=== PATIENT | male | born 1990 | race Caucasian/White ===

== ENCOUNTER 2016-08-05 12:12 | Observation (INO) | payer MEDICAID ==
[2016-08-05] MEDS ORDERED: ONDANSETRON 4 MG/2 ML VIAL IVP ONE ×2 (13:09→18:09)
[2016-08-05] MEDS ORDERED: HYDROmorphONE/DILAUDID 1 MG/ML SYR IVP ONE ×2 (13:09→14:29)
[2016-08-05] MEDS ORDERED: NS 1,000 ML IV ONE ×2 (13:09)
[2016-08-05 13:26] LABS: % IMMATURE GRANULYOCYTES 0.4 % (0.0-1.1); ABSOLUTE IMMATURE GRANULOCYTES 0.04 10^3/uL (0.00-0.10); ADD DIFF? NO; ADD MORPH? NO; ADD SCAN? NO; ATYPICAL LYMPHOCYTE FLAG 0 (0-99); FRAGMENT RBC FLAG 0 (0-99); HEMATOCRIT 48.7 % (40.0-51.0); HEMOGLOBIN 17.5 g/dL (13.7-17.5); LEFT SHIFT FLG 0 (0-99); LIPEMIA HEMOLYSIS FLAG 90 (0-99); MEAN CELL HEMOGLOBIN 32.2 pg (27.9-34.1); MEAN CELL HEMOGLOBIN CONCENTR. 35.9 g/dL (32.4-36.7); MEAN CELL VOLUME 89.5 fL (81.5-99.8); MEAN PLATELET VOLUME 9.2 fL (8.7-11.7); PLATELET CLUMPS FLAG 0 (0-99); PLATELET COUNT 329 10^3/uL (150-400); RED BLOOD CELL COUNT 5.44 10^6/uL (4.40-6.38); RED CELL DISTRIBUTION WIDTH 12.5 % (11.5-15.2)
[2016-08-05 14:01] LABS: ALANINE AMINOTRANSFERASE 67 IU/L (21-72); ALKALINE PHOSPHATASE 73 IU/L (38-126); ANION GAP 16 mEq/L (8-16); ASPARTATE AMINOTRANSFERASE 52 IU/L (17-59); BILIRUBIN-CONJUGATED 0.6 mg/dL (0.0-0.5); BILIRUBIN-UNCONJUGATED 2.4 mg/dL (0.0-1.1); CALCIUM 10.4 mg/dL (8.5-10.4); CARBON DIOXIDE 22 mEq/l (22-31); CHLORIDE 104 mEq/L (97-110); CREATININE 0.7 mg/dL (0.7-1.3); GLOMERULAR FILTRATION RATE > 60; GLUCOSE 122 mg/dL (70-100); SODIUM 142 mEq/L (134-144); TOTAL PROTEIN 8.3 g/dL (6.3-8.2)
[2016-08-05] MEDS ORDERED: HALOPERIDOL LACT 5 MG/ML INJ IVP ONE (14:30)
[2016-08-05] MEDS ORDERED: HALOPERIDOL LACT 5 MG/ML INJ ONE (14:31)
--- NOTE | 2016-08-05 16:24 | EDPHY ---
H & P Stated Complaint: N&V, Hx Gastroparesis flare up, constipation/diarrhea. - Personal History Current Tetanus/Diphtheria Vaccine: Unsure Current Tetanus Diphtheria and Acellular Pertussis (TDAP): Unsure - Medical/Surgical History Hx Asthma: No Hx Chronic Respiratory Disease: No Hx Diabetes: No Hx Cardiac Disease: No Hx Renal Disease: No Hx Cirrhosis: No Hx Alcoholism: No Hx HIV/AIDS: No Hx Splenectomy or Spleen Trauma: No Other PMH: gastroparesis, choleycystectomy, depression, mariojuana user. - Social History Smoking Status: Heavy smoker Time Seen by Provider: 08/05/16 13:02 HPI/ROS: Chief complaint: Abdominal pain with nausea and vomiting History of present illness: This is a 25-year-old male who reports a history of idiopathic gastroparesis who presents to the emergency department with abdominal pain with associated nausea and vomiting. Patient reports the onset of symptoms earlier today. He felt like he is having a flare of his idiopathic gastroparesis, he did give himself some suppository Phenergan which he uses to control symptoms but this did not help. He has had profuse vomiting described as nonbloody. He denies other associated signs or symptoms including no fevers or chills, no diarrhea, no urinary symptoms. 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 Review of systems: A 10 point review of systems was obtained and other than described above was negative (Rodrigue Hurley) - Physical Exam Exam: General Appearance: Alert, actively vomiting on my evaluation. Eyes: Pupils equal and round no pallor or injection. ENT, Mouth: Mucous membranes moist. Respiratory: There are no retractions, lungs are clear to auscultation. Cardiovascular: Regular rate and rhythm. Gastrointestinal: Bowel sounds are normal. Abdomen is soft, nondistended. Diffusely tender to palpation. No peritoneal signs. Neurological: Alert and oriented. Strength and sensation intact and symmetrical. Skin: Warm and dry, no rashes. Musculoskeletal: Neck is supple nontender. Extremities are symmetrical, full range of motion. Psychiatric: Patient is oriented X 3, there is no agitation. (Rodrigue Hurley) Constitutional: Initial Vital Signs Temperature (C) 36.6 C 08/05/16 12:23 Heart Rate 66 08/05/16 12:23 Respiratory Rate 16 08/05/16 12:23 Blood Pressure 148/94 H 08/05/16 12:23 O2 Sat (%) 100 08/05/16 12:23 O2 Delivery Mode Room Air Allergies/Adverse Reactions: No Known Allergies Allergy (Unverified 08/05/16 12:26) Home Medications: Medication Instructions Recorded Albuterol [Proventil Inhaler HFA 1 - 2 puffs IH DAILY PRN 08/05/16 (*)] Omeprazole [Prilosec 20 mg] 20 mg PO DAILY 08/05/16 Promethazine HCl [Phenergan] 25 mg RC Q6HRS PRN 08/05/16 Medical Decision Making ED Course/Re-evaluation: Patient discussed with my secondary supervising physician Dr. Bela Agee. Patient presents to the emergency department reporting history of idiopathic gastroparesis with associated abdominal pain, nausea and vomiting. Patient is symptomatically treated with poor control of his symptoms. He is therefore admitted to the [facility] for further evaluation and care, under the care of Dr. Oz Aparicio. The plan has been discussed with the patient who voiced understanding and agreement with it. (Rodrigue Hurley) Differential Diagnosis: Included but not limited to pass the gastroparesis flare, cyclic vomiting syndrome, marijuana induced vomiting, biliary tract disease, pancreatitis, colitis (Rdorigue Hurley) Other Provider: The patient was evaluated and managed by the Physician Fitter Welder/ Nurse Practitioner. I discussed the patient's presentation and course with the midlevel provider with them and agree with the evaluation. My co-signature indicates that I have reviewed this chart and I agree with the findings and plan of care as documented. I am the secondary supervising physician. (Bela Agee) - Data Points Laboratory Results: Laboratory Results 08/05/16 13:12 08/05/16 13:12 08/05/16 08/05/16 13:12 13:12 WBC 9.93 10^3/uL H 10^3/uL (3.80-9.50) RBC 5.44 10^6/uL 10^6/uL (4.40-6.38) Hgb 17.5 g/dL g/dL (13.7-17.5) Hct 48.7 % % (40.0-51.0) MCV 89.5 fL fL (81.5-99.8) MCH 32.2 pg pg (27.9-34.1) MCHC 35.9 g/dL g/dL (32.4-36.7) RDW 12.5 % % (11.5-15.2) Plt Count 329 10^3/uL 10^3/uL (150-400) MPV 9.2 fL fL (8.7-11.7) Neut % (Auto) 80.8 % H % (39.3-74.2) Lymph % (Auto) 13.3 % L % (15.0-45.0) Garza % (Auto) 5.0 % % (4.5-13.0) Eos % (Auto) 0.1 % L % (0.6-7.6) Baso % (Auto) 0.4 % % (0.3-1.7) Nucleat RBC Rel Count 0.0 % % (0.0-0.2) Absolute Neuts (auto) 8.02 10^3/uL H 10^3/uL (1.70-6.50) Absolute Lymphs (auto) 1.32 10^3/uL 10^3/uL (1.00-3.00) Absolute Monos (auto) 0.50 10^3/uL 10^3/uL (0.30-0.80) Absolute Eos (auto) 0.01 10^3/uL L 10^3/uL (0.03-0.40) Absolute Basos (auto) 0.04 10^3/uL 10^3/uL (0.02-0.10) Absolute Nucleated RBC 0.00 10^3/uL 10^3/uL (0-0.01) Immature Gran % 0.4 % % (0.0-1.1) Immature Gran # 0.04 10^3/uL 10^3/uL (0.00-0.10) Sodium 142 mEq/L mEq/L (134-144) Potassium 3.0 mEq/L L mEq/L (3.5-5.2) Chloride 104 mEq/L mEq/L (97-110) Carbon Dioxide 22 mEq/l mEq/l (22-31) Anion Gap 16 mEq/L mEq/L (8-16) BUN 13 mg/dL mg/dL (7-23) Creatinine 0.7 mg/dL mg/dL (0.7-1.3) Estimated GFR > 60 Glucose 122 mg/dL H mg/dL (70-100) Calcium 10.4 mg/dL mg/dL (8.5-10.4) Total Bilirubin 3.0 mg/dL H mg/dL (0.1-1.4) Conjugated Bilirubin 0.6 mg/dL H mg/dL (0.0-0.5) Unconjugated Bilirubin 2.4 mg/dL H mg/dL (0.0-1.1) AST 52 IU/L IU/L (17-59) ALT 67 IU/L IU/L (21-72) Alkaline Phosphatase 73 IU/L IU/L (38-126) Total Protein 8.3 g/dL H g/dL (6.3-8.2) Albumin 5.0 g/dL g/dL (3.5-5.0) Lipase 56.0 IU/L IU/L (23-300) Medications Given: Discontinued Medications Diphenhydramine HCl (Benadryl Injection) 25 mg IVP EDNOW ONE Stop: 08/05/16 14:31 Last Admin: 08/05/16 14:30 Dose: 25 mg Haloperidol Lactate (Haldol Injection) 5 mg IVP EDNOW ONE Stop: 08/05/16 14:31 Last Admin: 08/05/16 14:30 Dose: 5 mg Hydromorphone HCl (Dilaudid) 1 mg IVP EDNOW ONE Stop: 08/05/16 13:10 Last Admin: 08/05/16 13:21 Dose: 1 mg Hydromorphone HCl (Dilaudid) 1 mg IVP EDNOW ONE Stop: 08/05/16 14:30 Last Admin: 08/05/16 14:57 Dose: Not Given Sodium Chloride (Ns) 1,000 mls @ 0 mls/hr IV ONCE ONE PRN Reason: Wide Open Stop: 08/05/16 13:10 Last Admin: 08/05/16 13:20 Dose: 1,000 mls Sodium Chloride (Ns) 1,000 mls @ 0 mls/hr IV ONCE ONE PRN Reason: Wide Open Stop: 08/05/16 13:10 Last Admin: 08/05/16 14:30 Dose: 1,000 mls Ondansetron HCl (Zofran) 8 mg IVP EDNOW ONE Stop: 08/05/16 13:10 Last Admin: 08/05/16 13:21 Dose: 8 mg Ondansetron HCl (Zofran) 4 mg IVP EDNOW ONE Stop: 08/05/16 18:10 Last Admin: 08/05/16 18:15 Dose: 4 mg Departure - Departure Disposition: [facility] Acute Clinical Impression: Abdominal pain Qualifiers: Abdominal location: generalized Qualified Code(s): R10.84 - Generalized abdominal pain Condition: Good
[2016-08-05] MEDS ORDERED: ACETAMINOPHEN 325 MG TAB PO PRN (18:33)
[2016-08-05] MEDS ORDERED: ZOLPIDEM TARTRATE 5 MG TAB PO PRN (18:33)
[2016-08-05] MEDS ORDERED: NS 1,000 ML IV SCH (18:45)
[2016-08-05] MEDS ORDERED: ALBUTEROL 60 PUFFS/8 GM MDI IH PRN (18:59)
--- NOTE | 2016-08-05 19:04 | HOSPPROG ---
Hospitalist Progress Note Assessment/Plan: HISTORY AND PHYSICAL CC: Intractable nausea and vomiting for a week HISTORY: This patient has a history going back to 2006 of repeated episodes of per intractable vomiting and nausea with some component of abdominal pain. These can last anywhere from days to a few weeks. He has been hospitalized numerous times. This is his 1st visit to our healthcare system. He lives in [place] at this time and is visiting in [place] today. Previous evaluations have not shown any particular definite cause for this and he has had his gallbladder removed without help. He carries a diagnosis presumptively of idiopathic gastroparesis. His evaluation has been extensive with reimaging laboratory and consultative evaluations. He started having nausea and vomiting a week ago. Since then he has been having 4-15 nonbloody emesis cc per day. He has been moving his bowels somewhat but with little food intake not much. His last bowel movement was this morning. He has had 2 urgent care visits prior during this episode where he received antiemetics and fluids. Does use Phenergan suppositories at home but these are not working for him right now. He has not eaten much. The patient does not use any nonsteroidal anti-inflammatories or alcohol. He rarely uses recreational marijuana has not used recently. He does not use other illicit drugs. He has had no abdominal surgeries other than gallbladder removal. He denies shortness of breath or chest pain back pain rashes or joint pains or oral ulcers ROS: A comprehensive 10 system review revealed no other significant findings PAST MEDICAL HISTORY: See above Also he has some history of asthma and uses occasional inhaler FAMILY MEDICAL HISTORY: Father has Crohn's disease SOCIAL HISTORY: No use of tobacco alcohol and rare use of recreational pot MEDICATIONS: The patients list has been reconciled by our clinical pharmacist in the EMR. I have reviewed the list and ordered appropriate medicines. PHYSICAL EXAMINATION: Vital Signs: Stable without fever Examination: General: alert, oriented, good mentation, looks fairly uncomfortable from nausea Skin: warm, dry, good color, no rash or jaundice HEENT: normal Neck: no mass or jvd Resps: relaxed Lungs: clear breath sounds Heart: regular, no murmur Abdomen: soft, nondistended, very mild diffuse tenderness without rebound or guarding, +BS, no mass Upper Extremities: normal Lower Extremities: no edema, warm No Bleeding or bruising Neurologic: normal speech/language, normal construction secretary, no focal weakness IV site: looks normal LABORATORY DATA: Mainly remarkable for elevation of white blood cell count and a little bit of hypokalemia at 3.0 ASSESSMENT: -INTRACTABLE VOMITING, SUGGESTIVE OF POSSIBLE CYCLIC VOMITING SYNDROME BUT BEGIN THE PATIENT CARING A DIAGNOSIS OF IDIOPATHIC GASTROPARESIS FROM EVALUATION ELSEWHERE -DEHYDRATION -HYPOKALEMIA FROM ABOVE PLANS: -initially in observation -aggressive hydration -Replacement of potassium -aggressive antiemetic regimen on a scheduled basis with additional p.r.n. I have reviewed the patient's case in detail with Rodrigue WASHINGTON of the ER Objective: Vital Signs Temp Pulse Resp BP Pulse Ox 36.6 C 60 16 127/74 H 97 08/05/16 18:29 08/05/16 18:29 08/05/16 18:29 08/05/16 18:29 08/05/16 18:29 ICD10 Worksheet Patient Problems: Problems Problem Status Onset Abdominal pain Acute
[2016-08-05] MEDS: HALOPERIDOL LACT 5 MG/ML INJ IVP SCH (19:43)
[2016-08-05] MEDS: LORazepam 2 MG/ML INJ IVP PRN (21:55)
[2016-08-05] MEDS: ONDANSETRON 4 MG/2 ML VIAL IVP SCH (21:55)
[2016-08-05 22:21] LABS: COLOR AMBER; LEUKOCYTE ESTERASE,URINE NEGATIVE (NEGATIVE); NITRITE,URINE NEGATIVE (NEGATIVE)
[2016-08-05 22:26] LABS: AMORPHOUS PRESENT /hpf (NONE-1+); MUCUS TRACE /lpf (NONE-1+)
[2016-08-05 22:37] LABS: RBC,URINE NONE SEEN /hpf (0-3); WBC,URINE 0-1 /hpf (0-3)
[2016-08-06] MEDS: HALOPERIDOL LACT 5 MG/ML INJ IVP SCH ×4 (01:19→12:45)
[2016-08-06] MEDS: ONDANSETRON 4 MG/2 ML VIAL IVP SCH ×4 (02:06→10:59)
[2016-08-06 05:19] LABS: ANION GAP 9 mEq/L (8-16); CALCIUM 8.5 mg/dL (8.5-10.4); CARBON DIOXIDE 23 mEq/l (22-31); CHLORIDE 108 mEq/L (97-110); CREATININE 0.7 mg/dL (0.7-1.3); GLOMERULAR FILTRATION RATE > 60; GLUCOSE 85 mg/dL (70-100); POTASSIUM 3.5 mEq/L (3.5-5.2); SODIUM 140 mEq/L (134-144)
[2016-08-06 07:34] VITALS: BP 142/69; PULSE 70; RESP 18; TEMP 98.3; O2SAT 93
[2016-08-06] MEDS: LORazepam 2 MG/ML INJ IVP PRN (09:29)
[2016-08-06 12:33] LABS: PHENCYCLIDINE URINE BCH < 6 ng/ml (NEGATIVE); PHENCYCLIDINE URINE BCH NEGATIVE (NEGATIVE)
[2016-08-06 12:43] LABS: TETRAHYDROCANNABINOL URINE > 800 ng/mL (NEGATIVE)
--- NOTE | 2016-08-06 17:24 | GDS ---
[f rep st] DISCHARGE SUMMARY DISCHARGE DIAGNOSES: Include: 1. Suspected cannabis hyperemesis. 2. Chronic history of idiopathic gastroparesis. 3. Anxiety. HISTORY OF PRESENT ILLNESS: This is a 25-year-old male with a longstanding history of chronic nause a and vomiting that has led to cholecystectomy, 4 EGDs, multiple colonoscopies, and a diagnosis of i diopathic gastroparesis, who presents with recurrent nausea and vomiting. For details of the joanna sykes's initial presentation, please see the history and physical dated 08/05/2016. CONSULTATIVE SERVICES: None. PROCEDURES: None. HOSPITAL COURSE: By issue: 1. Acute nausea and vomiting. A detailed history was taken, and previous studies reviewed with the patient. He carries a diagnosis of idiopathic gastroparesis. Did review his social history, and h e admitted to occasionally using marijuana. We did a urine toxicology screen on him, and his measur ed marijuana was greater than 800, higher than the measurable level in our laboratory. Discussed th e likelihood that the patient is experiencing cannabis hyperemesis, and how important complete cessa tion of cannabis will be for him for any ongoing nausea and vomiting. The patient was tolerating no rmal intake at the time of disposition. 2. Chronic history of idiopathic gastroparesis. This is a difficult diagnosis for me to confirm or deny. Again, we recommend the patient avoid cannabis going forward, so the underlying pathophysiol ogy can be reviewed and controlled by Gastroenterology. I did review the case with the on-call eloisa roenterologist, who recommended outpatient followup. We provided contact information, and the vanessa nt will be promptly scheduled in GI of the [facility] for ongoing followup. DISCHARGE MEDICATIONS: Please reference medication reconciliation printed on 08/06/2016. FOLLOWUP APPOINTMENTS: Include with GI of the [facility]. PENDING STUDIES: At the time of this dictation are none. /[id number]/MODL
== END 2016-08-06 13:45 | disposition home or self-care (01) ==
LOC: EDBD 12:12 → F1N 18:22
PROVIDERS: ADMIT Internal Medicine; ATTEND Hospitalist
DX: R11.2 Nausea with vomiting, unspecified (principal); F41.9 Anxiety disorder, unspecified; K31.84 Gastroparesis; F12.90 Cannabis use, unspecified, uncomplicated
CPT/HCPCS: G0378 ×2; 80307; 96374; G0480; J1170; J1200; J2060; J2405

== ENCOUNTER 2016-08-10 10:46 | Observation (INO) | payer MEDICAID ==
[2016-08-10] MEDS ORDERED: ONDANSETRON 4 MG/2 ML VIAL ONE (10:51)
[2016-08-10] MEDS ORDERED: NS 1,000 ML IV ONE ×2 (10:59→11:32)
[2016-08-10] MEDS ORDERED: LORazepam 2 MG/ML INJ IVP ONE ×3 (10:59→16:12)
[2016-08-10] MEDS ORDERED: ONDANSETRON 4 MG/2 ML VIAL IVP ONE ×2 (11:00→11:32)
--- NOTE | 2016-08-10 11:03 | EDPHY ---
H & P Smoking Status: Current every day smoker Time Seen by Provider: 08/10/16 10:52 HPI/ROS: CHIEF COMPLAINT: Vomiting HISTORY OF PRESENT ILLNESS: 25-year-old male presents to the emergency department by private vehicle with his girlfriend complaining of multiple episodes of vomiting that began around 2:00 a.m.. The patient has a history of apparent idiopathic gastroparesis diagnosed in [place]. He has had a large workup including multiple colonoscopies and endoscopies. He is scheduled to see [facility] on Friday, in 2 days. He was admitted to the hospital on August 05, 2016, 5 days ago. The patient presents with recurring nausea and vomiting. He describes diffuse abdominal pain. He has vomited numerous times, he states "too many to count." No fevers or chills. No back pain. No urinary symptoms. No blood in his stool or emesis. REVIEW OF SYSTEMS: Constitutional: No fever, no chills. Eyes: No double or blurry vision. ENT: No sore throat. Respiratory: No cough, no shortness of breath. Cardiac: No chest pain. Gastrointestinal: Vomiting as above. Diffuse abdominal pain. No diarrhea. Genitourinary: No dysuria. Musculoskeletal: No neck or back pain. Skin: No rashes. Neurological: No headache. (Libby Godinezrina M) Past Medical/Surgical History: Idiopathic gastroparesis, possible cyclical vomiting syndrome, marijuana use ( Gretchen,Agatha M) Social History: Single, from [place] (Agatha Godinez M) Physical Exam: General Appearance: Alert. Heart rate 118, extremely anxious, respiratory rate 22, blood pressure 181/93 Eyes: Pupils equal and round. Extraocular motions are all intact. ENT: Mouth: Mucous membranes dry. Respiratory: No wheezing, rhonchi, or rales, lungs are clear to auscultation. Cardiovascular: Regular rate and rhythm. Gastrointestinal: Abdomen is soft. Diffusely tender to palpate. No masses, rebound or guarding noted. No CVA tenderness bilaterally. Neurological: Alert and oriented x 3, cranial nerves II through XII grossly intact Skin: Warm and dry, no rashes. Musculoskeletal: Nontender to palpate along the cervical, thoracic or lumbar spine. Neck is supple. Extremities: Full range of motion and no peripheral edema. Psychiatric: Patient is oriented X 3, there is no agitation. (Agatha Godinez) Constitutional: Initial Vital Signs Temperature (C) 36.4 C 08/10/16 10:46 Heart Rate 118 H 08/10/16 10:46 Respiratory Rate 22 H 08/10/16 10:46 Blood Pressure 181/93 H 08/10/16 10:46 O2 Sat (%) 99 08/10/16 10:46 O2 Delivery Mode Room Air Allergies/Adverse Reactions: haldol Allergy (Uncoded 08/10/16 11:27) reglan Allergy (Uncoded 08/10/16 11:27) Home Medications: Medication Instructions Recorded Albuterol [Proventil Inhaler HFA 1 - 2 puffs IH DAILY PRN 08/05/16 (*)] Omeprazole [Prilosec 20 mg] 20 mg PO DAILY 08/05/16 Ondansetron HCl [Zofran] 8 mg PO Q8 PRN #30 tablet 08/06/16 Promethazine HCl [Phenergan] 25 mg RC Q6 PRN 08/10/16 Medical Decision Making ED Course/Re-evaluation: 25-year-old male presents to the emergency department with multiple episodes of nausea vomiting. He was recently admitted to the hospital with similar symptoms. I do not think this patient has acute abdomen. He came in extremely anxious and hyperventilating. He was given IV Ativan and Zofran and has been sleeping. Patient states that he cannot take Haldol, it makes him extremely anxious. The patient was re-evaluated multiple times. He was resting comfortably and in fact sleeping very soundly. I went to wake him up and he states that he was feeling a bit better. I was talking to him about obtaining a ride home. He states that he does not have a ride home for at least 5 or 6 hours, until his were all friend got off work at 9:00 p.m.. The nurse explained that the girlfriend offered to come back and take him home, however when the patient started drinking water he immediately felt nauseous and began vomiting again. Patient will be admitted to Dr. Morena Street to the [facility]. (Agatha Godinez) Differential Diagnosis: Including but not limited to gastritis, gastroenteritis, bowel obstruction, gastroparesis, hyperemesis cannabinoid syndrome, anxiety (Agatha Godinez) Other Provider: The patient was evaluated and managed by the physician physiotherapist's assistant. I have reviewed this chart and I agree with the findings and plan of care as documented , as indicated by my signature. I am the secondary supervising physician. ( Millicent Vergara) - Data Points Laboratory Results: Laboratory Results 08/10/16 10:55 08/10/16 10:55 Medications Given: Discontinued Medications Sodium Chloride (Ns) 1,000 mls @ 0 mls/hr IV ONCE ONE PRN Reason: Wide Open Stop: 08/10/16 11:00 Last Admin: 08/10/16 11:00 Dose: 1,000 mls Sodium Chloride (Ns) 1,000 mls @ 0 mls/hr IV ONCE ONE PRN Reason: Wide Open Stop: 08/10/16 11:33 Last Admin: 08/10/16 11:44 Dose: 1,000 mls Famotidine 20 mg/ Sodium (Chloride) 102 mls @ 408 mls/hr IV EDNOW ONE Stop: 08/10/16 14:04 Last Admin: 08/10/16 13:59 Dose: 102 mls Pantoprazole Sodium 40 mg/ (Sodium Chloride) 100 mls @ 200 mls/hr IV EDNOW ONE Stop: 08/10/16 14:19 Last Admin: 08/10/16 14:11 Dose: 100 mls Lorazepam (Ativan Injection) 1 mg IVP EDNOW ONE Stop: 08/10/16 11:00 Last Admin: 08/10/16 11:07 Dose: 1 mg Lorazepam (Ativan Injection) 1 mg IVP EDNOW ONE Stop: 08/10/16 11:33 Last Admin: 08/10/16 11:43 Dose: 1 mg Lorazepam (Ativan Injection) 1 mg IVP EDNOW ONE Stop: 08/10/16 16:13 Last Admin: 08/10/16 16:20 Dose: 1 mg Metoclopramide HCl (Reglan Injection) 10 mg IVP EDNOW ONE Stop: 08/10/16 11:21 Last Admin: 08/10/16 11:27 Dose: Not Given Ondansetron HCl (Zofran) 4 mg IVP EDNOW ONE Stop: 08/10/16 11:01 Last Admin: 08/10/16 11:00 Dose: 4 mg Ondansetron HCl (Zofran) 4 mg IVP EDNOW ONE Stop: 08/10/16 11:33 Last Admin: 08/10/16 11:44 Dose: 4 mg Ondansetron HCl (Zofran Odt) 4 mg PO EDNOW ONE Stop: 08/10/16 13:41 Last Admin: 08/10/16 13:51 Dose: Not Given Departure - Departure Disposition: [facility] Acute Clinical Impression: Dehydration Vomiting Qualifiers: Vomiting type: unspecified Vomiting Intractability: non-intractable Nausea presence: with nausea Qualified Code(s): R11.2 - Nausea with vomiting, unspecified Condition: Good
[2016-08-10] MEDS ORDERED: METOCLOPRAMIDE 10 MG/2 ML VIAL IVP ONE (11:20)
[2016-08-10 12:59] LABS: % IMMATURE GRANULYOCYTES 0.7 % (0.0-1.1); ABSOLUTE IMMATURE GRANULOCYTES 0.09 10^3/uL (0.00-0.10); ADD DIFF? NO; ADD MORPH? NO; ADD SCAN? NO; ATYPICAL LYMPHOCYTE FLAG 10 (0-99); FRAGMENT RBC FLAG 0 (0-99); HEMATOCRIT 50.9 % (40.0-51.0); HEMOGLOBIN 17.1 g/dL (13.7-17.5); LEFT SHIFT FLG 0 (0-99); LIPEMIA HEMOLYSIS FLAG 80 (0-99); MEAN CELL HEMOGLOBIN 31.3 pg (27.9-34.1); MEAN CELL HEMOGLOBIN CONCENTR. 33.6 g/dL (32.4-36.7); MEAN CELL VOLUME 93.2 fL (81.5-99.8); MEAN PLATELET VOLUME 9.9 fL (8.7-11.7); PLATELET CLUMPS FLAG 0 (0-99); PLATELET COUNT 407 10^3/uL (150-400); RED BLOOD CELL COUNT 5.46 10^6/uL (4.40-6.38); RED CELL DISTRIBUTION WIDTH 13.1 % (11.5-15.2)
[2016-08-10 13:05] LABS: ANION GAP 16 mEq/L (8-16); CALCIUM 10.1 mg/dL (8.5-10.4); CARBON DIOXIDE 26 mEq/l (22-31); CHLORIDE 103 mEq/L (97-110); CREATININE 0.7 mg/dL (0.7-1.3); GLOMERULAR FILTRATION RATE > 60; GLUCOSE 114 mg/dL (70-100); SODIUM 145 mEq/L (134-144)
[2016-08-10] MEDS ORDERED: ONDANSETRON DISINTEGRATING 4 MG TAB PO ONE (13:40)
[2016-08-10] MEDS ORDERED: PANTOPRAZOLE SODIUM 40 MG in NS 100 ML IV ONE (13:50)
[2016-08-10] MEDS ORDERED: FAMOTIDINE 20 MG in NS 100 ML IV ONE (13:50)
[2016-08-10] MEDS ORDERED: NON-FORMULARY NEW DRUG (Ondansetron Hcl [Zofran] 8 MG) PO PRN (16:32)
[2016-08-10] MEDS ORDERED: PROMETHAZINE HCL 25 MG SUPPR PR PRN (16:32)
[2016-08-10] MEDS ORDERED: ONDANSETRON DISINTEGRATING 4 MG TAB PO PRN (16:48)
[2016-08-10] MEDS ORDERED: KETOROLAC 30 MG/1 ML SDV IVP PRN (17:07)
[2016-08-10] MEDS ORDERED: ACETAMINOPHEN 325 MG TAB PO PRN (17:07)
[2016-08-10] MEDS ORDERED: ONDANSETRON 4 MG/2 ML VIAL IVP PRN (17:07)
[2016-08-10] MEDS ORDERED: POLYETHYLENE GLYCOL 3350 17 GM PKT PO PRN (17:21)
[2016-08-10] MEDS ORDERED: MAGNESIUM HYDROXIDE 30 ML UDCUP PO PRN (17:21)
[2016-08-10] MEDS ORDERED: LACTULOSE 20 GM/30 ML UDCUP PO PRN (17:21)
[2016-08-10] MEDS ORDERED: BISACODYL 10 MG SUPP PR PRN (17:21)
--- NOTE | 2016-08-10 18:11 | GHP ---
[f rep st] HISTORY AND PHYSICAL DATE OF ADMISSION: 08/10/2016 CHIEF COMPLAINT: Nausea/vomiting. HISTORY: Wilmer is a 25-year-old male with a history of intractable nausea and vomiting, as far back as 2006. Previous workup was all in [place] but reportedly included EGD x4, colonoscopy, and cholecys tectomy with an eventual diagnosis of idiopathic gastroparesis. He was recently admitted to [facility] with hyperemesis and was just discharged 3 days ago. He initially denied signif icant marijuana use; however, his marijuana level here on his last admission was greater than 800, w hich is higher than the detectable levels of our lab, and so it was felt to be likely contributing. He was counseled in this regard and states this since he left the hospital he has dramatically cut down his marijuana use. His last marijuana use was 1-1/2 days ago, and threw the rest of it away. He also denies that marijuana is contributing to the vomiting, as this vomiting problem has preceded his marijuana use. He re-presented to the emergency room and was observed in the ER for greater th an 4 hours and failed to improve, and so is now being admitted to the observation unit. He is const ipated and had a bowel movement this morning, but it was hard. He complains of abdominal pain, whic h is epigastric pain, without radiation similar to previous abdominal pain episodes. He states he h as had 4-5 CT scans in the past, all of which did not result in any diagnosis; although, he did say he had some biopsies as a result of the CT scans. PAST MEDICAL HISTORY: 1. Idiopathic gastroparesis with intractable nausea and vomiting as far back 2006. 2. Anxiety. 3. Asthma. MEDICATIONS: Please see computer record for full detailed list. ALLERGIES: Haldol and Reglan. SOCIAL HISTORY: He does smoke cigarettes and is cutting back; now at half a pack per day. No alcoh ol use. Marijuana use as above with an intent to quit at this time. He lives with his girlfriend vin [place]. Not currently employed. His last job was at [employer] last January. Typically work s in seafood harvester. REVIEW OF SYSTEMS: Complete review of systems obtained. Review of systems is negative regarding co nstitutional, HEENT, GI, pulmonary, cardiovascular, , hematology, skin, musculoskeletal, endocrine , and psych except for positives and negatives as in HPI. FAMILY HISTORY: Father with Crohn disease. PHYSICAL EXAMINATION: GENERAL: Well-developed, well-nourished male, in no acute distress. VITAL SI GNS: Temperature is 36.4, pulse 118, blood pressure 181/93, satting 98% on room air. EYES: Normal conjunctivae. Pupils react to light. ENT: Normal ears and nose. Hearing intact. Normal lips an d teeth. Oropharynx moist. NECK: Trachea midline. No thyromegaly. CHEST: Normal respiratory ef fort. LUNGS: Clear to auscultation bilaterally. CARDIOVASCULAR: Regular rate and rhythm. No mur mur. No lower extremity edema. ABDOMEN: Soft. Positive epigastric tenderness to palpation withou t rebound or guarding. No hepatosplenomegaly. SKIN: Warm, dry, and intact without rash. MUSCULOS KELETAL: No cyanosis or clubbing. Strength 5/5 in upper and lower extremities. NEURO: Cranial ne rves intact. Normal sensation to light touch. PSYCH: Alert and oriented x3. Normal mood and affe ct. Normal judgment. Normal memory. LABORATORY DATA: White count 13.56, hematocrit 50.9, platelets 407. Sodium 145, potassium 4.0, chl oride 103, bicarb 26, BUN 9, creatinine 0.7, glucose 114. This case was discussed with FELIX Nevarez, in the emergency room regarding the emergency room course. She held him in the ER over 4 rohini rs in an attempt to discharge from the ER, but it failed. ASSESSMENT/PLAN: 1. Recurrent intractable nausea and vomiting, with a history of years of hyperemesis. Possible con tribution of high marijuana use; although, the patient adamant that these symptoms preceded the onse t of his marijuana habit. Interestingly, he does meet sepsis criteria on presentation with leukocyt osis and tachycardia; although, I do not believe he is infected. His abdominal exam is quite tender , however, and with his leukocytosis could consider further imaging. No imaging was done during his last hospitalization but, by report, has been imaged extensively in the past. I will start with a 3 way of the abdomen, and if this persists could consider a CAT scan. He will otherwise be treated supportively. 2. Constipation. This may be contributing to his nausea and vomiting. Will place him on a bowel p rotocol. 3. Asthma. This is currently stable. Hold off on any inhalers at this time. CODE STATUS: Full. ADMISSION STATUS: 1. Will admit to observation. Anticipate short stay. If he improves. 2. DVT prophylaxis. He is low risk. /[id number]/MODL
[2016-08-10] MEDS: NS 1,000 ML IV SCH (19:00)
[2016-08-10] MEDS: SENNOSIDES/DOCUSATE SODIUM TAB PO SCH (21:10)
[2016-08-11] MEDS: NS 1,000 ML IV SCH (03:33)
[2016-08-11 05:45] LABS: % IMMATURE GRANULYOCYTES 0.3 % (0.0-1.1); ABSOLUTE IMMATURE GRANULOCYTES 0.03 10^3/uL (0.00-0.10); ADD DIFF? NO; ADD MORPH? NO; ADD SCAN? NO; ATYPICAL LYMPHOCYTE FLAG 0 (0-99); FRAGMENT RBC FLAG 0 (0-99); HEMATOCRIT 42.2 % (40.0-51.0); HEMOGLOBIN 14.4 g/dL (13.7-17.5); LEFT SHIFT FLG 0 (0-99); LIPEMIA HEMOLYSIS FLAG 90 (0-99); MEAN CELL HEMOGLOBIN 31.9 pg (27.9-34.1); MEAN CELL HEMOGLOBIN CONCENTR. 34.1 g/dL (32.4-36.7); MEAN CELL VOLUME 93.4 fL (81.5-99.8); MEAN PLATELET VOLUME 9.2 fL (8.7-11.7); PLATELET CLUMPS FLAG 0 (0-99); PLATELET COUNT 289 10^3/uL (150-400); RED BLOOD CELL COUNT 4.52 10^6/uL (4.40-6.38); RED CELL DISTRIBUTION WIDTH 13.2 % (11.5-15.2)
[2016-08-11 06:08] LABS: ALANINE AMINOTRANSFERASE 55 IU/L (21-72); ALBUMIN 3.5 g/dL (3.5-5.0); ALKALINE PHOSPHATASE 48 IU/L (38-126); ANION GAP 8 mEq/L (8-16); ASPARTATE AMINOTRANSFERASE 23 IU/L (17-59); BILIRUBIN,TOTAL 1.2 mg/dL (0.1-1.4); BILIRUBIN-CONJUGATED 0.4 mg/dL (0.0-0.5); BILIRUBIN-UNCONJUGATED 0.8 mg/dL (0.0-1.1); CALCIUM 8.6 mg/dL (8.5-10.4); CARBON DIOXIDE 24 mEq/l (22-31); CHLORIDE 108 mEq/L (97-110); CREATININE 0.7 mg/dL (0.7-1.3); GLOMERULAR FILTRATION RATE > 60; GLUCOSE 85 mg/dL (70-100); SODIUM 140 mEq/L (134-144); TOTAL PROTEIN 5.9 g/dL (6.3-8.2)
[2016-08-11] MEDS ORDERED: PANTOPRAZOLE SODIUM 40 MG TAB PO SCH (09:00)
[2016-08-11] MEDS ORDERED: NON-FORMULARY NEW DRUG (Omeprazole [Prilosec 20 Mg] 20 MG) PO SCH (09:00)
[2016-08-11] MEDS: SENNOSIDES/DOCUSATE SODIUM TAB PO SCH (09:25)
[2016-08-11 10:30] VITALS: BP 134/77; PULSE 69; RESP 20; TEMP 98.2; O2SAT 93
--- NOTE | 2016-08-11 15:18 | PDDCSUM ---
Discharge Summary Discharge Summary: DISCHARGE DIAGNOSES: -Intractable vomiting, -Acute exacerbation of recurrent syndrome likely cyclic vomiting syndrome but patient carries diagnosis of gastroparesis - marijuana abuse HOSPITAL COURSE SUMMARY: this patient returns to the hospital shortly after a previous episode of similar symptoms. Has a long history of recurrent episodes of intractable vomiting some of which often going on for weeks on end. At this point he was admitted here 6 days ago and responded very well to antiemetics and hydration. He did well for the 1st 3 days at home with no nausea or vomiting complete comes back at this time with intractable vomiting again. Once again he has responded very well to hydration and antiemetics. The patient does have some history of marijuana abuse but says that his vomiting episodes predated his use of marijuana. He says that he had not use marijuana between his previous hospital stay in this hospital stay. He has had extensive evaluation with imaging endoscopies numerous blood tests and consultations in the past and there is no indication for any further evaluation diagnostically at this time. I did prescribed for him orally disintegrating Zofran that he can use at home without having to try to swallow it. He does also have Phenergan suppositories at home. Does not really exhibit much in the way of drug-seeking behaviors here in terms of pain medicine. He does not use narcotics at home MEDICATION CHANGES: Addition of orally disintegrating Zofran FOLLOW-UP PLAN: With primary care 1-2 weeks or sooner as needed
== END 2016-08-11 13:27 | disposition home or self-care (01) ==
LOC: F1N 16:32
PROVIDERS: ADMIT Internal Medicine; ATTEND Internal Medicine
DX: R11.2 Nausea with vomiting, unspecified (principal); K31.84 Gastroparesis; F12.90 Cannabis use, unspecified, uncomplicated; E86.0 Dehydration; R10.13 Epigastric pain; K59.00 Constipation, unspecified; F41.9 Anxiety disorder, unspecified; J45.909 Unspecified asthma, uncomplicated; F17.210 Nicotine dependence, cigarettes, uncomplicated
CPT/HCPCS: 74022; G0378; 96365; J2060; J2405; J2765

== ENCOUNTER 2016-10-15 13:07 | Inpatient (IN) | payer MEDICAID ==
--- NOTE | 2016-10-15 13:09 | EDPHY ---
H & P Time Seen by Provider: 10/15/16 13:08 HPI/ROS: CHIEF COMPLAINT: Acute abdominal pain, nausea, vomiting HISTORY OF PRESENT ILLNESS: Acute exacerbation of chronic abdominal pain and vomiting. The patient presents to the ED with a acute exacerbation of a condition he describes as idiopathic gastroparesis. The patient is currently under the care of a tortilla maker. He has been using Zofran at home without improvement. He complains of a moderate to severe epigastric pain with associated retching. The patient also complains of constipation. The patient tells me that the symptoms have not been attributed to moderate marijuana use although he does continue to use marijuana on a regular basis. The patient has had multiple upper and lower endoscopies. The patient is also s/p cholecystectomy. The patient reports acute, severe and typical symptoms of his exacerbations. He denies melena or associated. REVIEW OF SYSTEMS: A comprehensive 10 point review of systems is otherwise negative aside from elements mentioned in the history of present illness. Source: Patient Exam Limitations: No limitations - Medical/Surgical History Hx Asthma: No Hx Chronic Respiratory Disease: No Hx Diabetes: No Hx Cardiac Disease: No Hx Renal Disease: No Hx Cirrhosis: No Hx Alcoholism: No Hx HIV/AIDS: No Hx Splenectomy or Spleen Trauma: No Other PMH: gastroparesis, choleycystectomy, depression, marijuana user, childhood asthma, palpatation, GERD, cyclic vomiting syndrome - Social History Smoking Status: Current some day smoker - Physical Exam Exam: General Appearance: Retching, slightly agitated Eyes: Pupils equal and round no pallor or injection ENT, Mouth: Mucous membranes moist Respiratory: There are no retractions, lungs are clear to auscultation Cardiovascular: Regular rate and rhythm Gastrointestinal: Minimal epigastric tenderness palpation Neurological: A&O, normal motor function, normal sensory exam, normal cranial nerves Skin: Warm and dry, no rashes Musculoskeletal: Neck is supple nontender Extremities: symmetrical, full range of motion Constitutional: Initial Vital Signs Temperature (C) 36.3 C 10/15/16 13:10 Heart Rate 55 L 10/15/16 13:10 Respiratory Rate 10/15/16 13:10 Blood Pressure 151/87 H 10/15/16 13:10 O2 Sat (%) 100 10/15/16 13:10 O2 Delivery Mode Room Air Allergies/Adverse Reactions: acetaminophen [From Vicodin] Allergy (Verified 10/15/16 13:08) hydrocodone [From Vicodin] Allergy (Verified 10/15/16 13:08) haldol Allergy (Uncoded 10/15/16 13:08) reglan Allergy (Uncoded 10/15/16 13:08) Home Medications: Medication Instructions Recorded Albuterol [Proventil Inhaler HFA 1 - 2 puffs IH DAILY PRN 08/05/16 (*)] Omeprazole [Prilosec 20 mg] 20 mg PO DAILY 08/05/16 Promethazine HCl [Phenergan] 25 mg RC Q6 PRN 08/10/16 Ondansetron Odt [Zofran Odt 4 mg 8 mg PO Q8 PRN #60 tab 08/11/16 (*)] Hyoscyamine 08/28/16 Medical Decision Making ED Course/Re-evaluation: The patient presents to the ED with an acute exacerbation of vomiting. The patient's abdominal examination is benign. I reviewed the patient's past medical records. The patient was treated with IV fluid bolus for rehydration, IV Zofran Ativan. The patient does have a mild acidosis likely secondary to mild volume depletion. This was treated with additional IV fluids. The patient received an additional dose of IV Ativan and Zofran in addition to 50 mg of Benadryl at 3:45 p.m.. Reassessment at 4:15 p.m.. Patient continues to have ongoing retching and vomiting. He will require admission to the hospital for symptomatic management. Consultation was made with Dr. Leonardo Leung from the hospitalist. Differential Diagnosis: Differential diagnosis considered includes hypovolemia, metabolic abnormality, dehydration, cyclic vomiting syndrome, pancreatitis, hepatitis - Data Points Laboratory Results: Laboratory Results 10/15/16 14:22 10/15/16 14:22 10/15/16 10/15/16 14:22 14:22 WBC REJ RBC REJ Hgb REJ Hct REJ MCV REJ MCH REJ MCHC REJ RDW REJ Plt Count REJ MPV REJ Neut % (Auto) REJ Lymph % (Auto) REJ Iron % (Auto) REJ Eos % (Auto) REJ Baso % (Auto) REJ Nucleat RBC Rel Count REJ Absolute Neuts (auto) REJ Absolute Lymphs (auto) REJ Absolute Monos (auto) REJ Absolute Eos (auto) REJ Absolute Basos (auto) REJ Absolute Nucleated RBC REJ Immature Gran % REJ Immature Gran # REJ Sodium 144 mEq/L mEq/L (134-144) Potassium 3.8 mEq/L mEq/L (3.5-5.2) Chloride 108 mEq/L mEq/L (97-110) Carbon Dioxide 19 mEq/l L mEq/l (22-31) Anion Gap 17 mEq/L H mEq/L (8-16) BUN 13 mg/dL mg/dL (7-23) Creatinine 0.8 mg/dL mg/dL (0.7-1.3) Estimated GFR > 60 Glucose 127 mg/dL H mg/dL (70-100) Calcium 10.0 mg/dL mg/dL (8.5-10.4) Total Bilirubin 1.5 mg/dL H mg/dL (0.1-1.4) Conjugated Bilirubin 0.7 mg/dL H mg/dL (0.0-0.5) Unconjugated Bilirubin 0.8 mg/dL mg/dL (0.0-1.1) AST 30 IU/L IU/L (17-59) ALT 29 IU/L IU/L (21-72) Alkaline Phosphatase 68 IU/L IU/L (38-126) Total Protein 7.9 g/dL g/dL (6.3-8.2) Albumin 5.1 g/dL H g/dL (3.5-5.0) Lipase 43.0 IU/L IU/L (23-300) Medications Given: Discontinued Medications Diphenhydramine HCl (Benadryl Injection) 50 mg IVP EDNOW ONE Stop: 10/15/16 13:16 Last Admin: 10/15/16 13:36 Dose: 50 mg Sodium Chloride (Ns) 1,000 mls @ 0 mls/hr IV ONCE ONE; Wide Open PRN Reason: Protocol Stop: 10/15/16 13:15 Last Admin: 10/15/16 13:37 Dose: 1,000 mls Lorazepam (Ativan Injection) 1 mg IVP EDNOW ONE Stop: 10/15/16 13:15 Last Admin: 10/15/16 13:36 Dose: 1 mg Lorazepam (Ativan Injection) 1 mg IVP EDNOW ONE Stop: 10/15/16 15:58 Last Admin: 10/15/16 15:58 Dose: 1 mg Ondansetron HCl (Zofran) 4 mg IVP EDNOW ONE Stop: 10/15/16 13:15 Last Admin: 10/15/16 13:36 Dose: 4 mg Ondansetron HCl (Zofran) 4 mg IVP EDNOW ONE Stop: 10/15/16 15:58 Last Admin: 10/15/16 15:57 Dose: 4 mg Departure - Departure Disposition: [facility] Clinical Impression: Cyclic vomiting syndrome Condition: Fair
[2016-10-15] MEDS ORDERED: NS 1,000 ML IV ONE ×2 (13:14→15:00)
[2016-10-15] MEDS ORDERED: LORazepam 2 MG/ML INJ IVP ONE ×2 (13:14→15:57)
[2016-10-15] MEDS ORDERED: ONDANSETRON 4 MG/2 ML VIAL IVP ONE ×2 (13:14→15:57)
[2016-10-15 14:44] LABS: ALANINE AMINOTRANSFERASE 29 IU/L (21-72); ALBUMIN 5.1 g/dL (3.5-5.0); ALKALINE PHOSPHATASE 68 IU/L (38-126); ANION GAP 17 mEq/L (8-16); ASPARTATE AMINOTRANSFERASE 30 IU/L (17-59); BILIRUBIN,TOTAL 1.5 mg/dL (0.1-1.4); BILIRUBIN-CONJUGATED 0.7 mg/dL (0.0-0.5); BILIRUBIN-UNCONJUGATED 0.8 mg/dL (0.0-1.1); CARBON DIOXIDE 19 mEq/l (22-31); CHLORIDE 108 mEq/L (97-110); CREATININE 0.8 mg/dL (0.7-1.3); GLOMERULAR FILTRATION RATE > 60; GLUCOSE 127 mg/dL (70-100); POTASSIUM 3.8 mEq/L (3.5-5.2); SODIUM 144 mEq/L (134-144); TOTAL PROTEIN 7.9 g/dL (6.3-8.2)
[2016-10-15] MEDS ORDERED: ONDANSETRON 4 MG/2 ML VIAL ONE (15:45)
[2016-10-15] MEDS ORDERED: LORazepam 2 MG/ML INJ ONE (15:46)
[2016-10-15] MEDS ORDERED: ACETAMINOPHEN 325 MG TAB PO PRN (17:06)
[2016-10-15] MEDS ORDERED: NON-FORMULARY NEW DRUG (Omeprazole [Prilosec 20 Mg] 20 MG) PO PRN (17:08)
[2016-10-15] MEDS ORDERED: PROMETHAZINE HCL 25 MG SUPPR PR PRN (17:08)
[2016-10-15] MEDS ORDERED: ALBUTEROL 60 PUFFS/8 GM MDI IH PRN (17:08)
[2016-10-15] MEDS ORDERED: NS 1,000 ML IV SCH (17:15)
[2016-10-15 17:32] LABS: % IMMATURE GRANULYOCYTES 0.5 % (0.0-1.1); ABSOLUTE IMMATURE GRANULOCYTES 0.07 10^3/uL (0.00-0.10); ADD DIFF? NO; ADD MORPH? NO; ADD SCAN? NO; ATYPICAL LYMPHOCYTE FLAG 0 (0-99); FRAGMENT RBC FLAG 0 (0-99); HEMATOCRIT 46.2 % (40.0-51.0); HEMOGLOBIN 15.9 g/dL (13.7-17.5); LEFT SHIFT FLG 0 (0-99); LIPEMIA HEMOLYSIS FLAG 90 (0-99); MEAN CELL HEMOGLOBIN 32.3 pg (27.9-34.1); MEAN CELL HEMOGLOBIN CONCENTR. 34.4 g/dL (32.4-36.7); MEAN CELL VOLUME 93.9 fL (81.5-99.8); MEAN PLATELET VOLUME 9.4 fL (8.7-11.7); PLATELET CLUMPS FLAG 0 (0-99); PLATELET COUNT 254 10^3/uL (150-400); RED BLOOD CELL COUNT 4.92 10^6/uL (4.40-6.38); RED CELL DISTRIBUTION WIDTH 12.7 % (11.5-15.2)
[2016-10-15] MEDS ORDERED: PANTOPRAZOLE SODIUM 40 MG TAB PO PRN (17:53)
--- NOTE | 2016-10-15 18:07 | GHP ---
[f rep st] HISTORY AND PHYSICAL DATE OF ADMISSION: 10/15/2016 CHIEF COMPLAINT: Nausea, vomiting. HISTORY OF PRESENT ILLNESS: This is a 26-year-old man who presents with intractable vomiting. He j ust moved here from [place] about 6 months ago. He has had 2 admissions since then. He has had multip le EGDs, colonoscopy, as well as cholecystectomy. He carries the diagnosis of idiopathic gastropare sis. He does use some marijuana, but notes that his GI symptoms began prior to his marijuana use. Symptoms have vomiting, which is nonbloody, somewhat bilious, has been ongoing for about 1 week. No diarrhea. He has had some constipation. He is accompanied by his fiancee who provides most of the history, as he is quite somnolent from medications received in the ED. PAST MEDICAL/SURGICAL HISTORY: 1. Idiopathic gastroparesis. He is followed by [facility]. 2. History of cholecystectomy. MEDICATIONS: Omeprazole, Zofran, hyoscyamine. ALLERGIES: Acetaminophen, hydrocodone, Haldol and Reglan. FAMILY HISTORY: His father had Crohn's disease. SOCIAL HISTORY: He does not drink alcohol. He uses some marijuana occasionally. He is accompanied by his fiancee. REVIEW OF SYSTEMS: A 10-point review of systems is conducted and is negative except per HPI. PHYSICAL EXAM: VITAL SIGNS: Blood pressure 151/87, heart rate is 55, respiration rate 20, satting 100% on room air, temperature is 36.3. GENERAL: The patient is a pleasant man who is lying in bed, quite somnolent, though arousable to voice. HEENT: Normocephalic, atraumatic. CARDIOVASCULAR: Re gular rate and rhythm. No murmurs, rubs, or gallops. PULMONARY: Lungs clear to auscultation bilat erally. ABDOMEN: Soft, nontender, nondistended. SKIN: No rash. : No Stallings. NEUROLOGIC: Exa m shows him to be somnolent, but he is alert and oriented x3. He is moving all extremities. PSYCHI ATRIC: Normal mood and affect. LABS: CBC is pending. Bicarb is 17. Total bilirubin is 1.7. Sodium is 144. DATA: 1. I discussed this with Dr. Weiss. 2. I reviewed his abdominal x-ray from July of 2016, this was personally reviewed and interpreted. This was a 3 way. It showed a fairly unremarkable chest x-ray. Normal gas pattern in his abdomen . IMPRESSION AND PLAN: A 26-year-old man with intractable nausea, vomiting. 1. Intractable nausea, vomiting: Per report due to idiopathic gastroparesis. He has had reportedl y significant workup in the past, will not repeat that here. His stomach is soft. I do not think h e needs any imaging at this time. I have provided him with supportive care. We will follow him cli nically. If he is not improving, would involve GI. He follows with [facility]. 2. Acidosis: This is due to his dehydration. We will recheck this with fluid hydration. 3. Suspected Gilbert's. 4. Dehydration: We will correct this with IV fluids. /[id number]/MODL
[2016-10-15] MEDS: PROMETHAZINE HCL 25 MG/ML INJ IVP PRN (18:11)
[2016-10-15] MEDS: ONDANSETRON 4 MG/2 ML VIAL IVP PRN (20:48)
[2016-10-15] MEDS: HYOSCYAMINE SULFATE 0.125 MG TAB SL PRN (22:15)
[2016-10-16] MEDS: ONDANSETRON 4 MG/2 ML VIAL IVP PRN ×5 (00:17→19:13)
[2016-10-16] MEDS: PROMETHAZINE HCL 25 MG/ML INJ IVP PRN ×4 (02:22→21:29)
[2016-10-16] MEDS: LORazepam 2 MG/ML INJ IVP PRN ×3 (04:40→21:29)
[2016-10-16 06:10] LABS: CALCIUM 9.7 mg/dL (8.5-10.4); CARBON DIOXIDE 23 mEq/l (22-31); CHLORIDE 104 mEq/L (97-110); CREATININE 0.7 mg/dL (0.7-1.3); GLOMERULAR FILTRATION RATE > 60; GLUCOSE 103 mg/dL (70-100); SODIUM 142 mEq/L (134-144)
[2016-10-16 06:43] LABS: ANION GAP 15 mEq/L (8-16); POTASSIUM 4.2 mEq/L (3.5-5.2)
[2016-10-16] MEDS: HYOSCYAMINE SULFATE 0.125 MG TAB SL PRN ×2 (11:59→21:29)
--- NOTE | 2016-10-16 13:47 | HOSPPROG ---
Hospitalist Progress Note Assessment/Plan: 26 yo M w gastroparesis here w n/vom gastroparesis: continue symptomatic management drug allergies noted ?cannabis hyperemesis: feel less likely follow acidosis: resolved proph: lmwh dispo :inpt Subjective: sleeping but arousable. still nauseated Objective: Vital Signs Temp Pulse Resp BP Pulse Ox 37.2 C 55 L 16 150/88 H 93 10/16/16 08:00 10/16/16 08:00 10/16/16 08:00 10/16/16 08:00 10/16/16 08:00 Laboratory Results 10/15/16 17:21 10/16/16 04:21 10/15/16 10/16/16 10/17/16 05:59 05:59 05:59 Intake Total 2000 Output Total 150 Balance 1999 -150 - Physical Exam Constitutional: no apparent distress, appears nourished Eyes: PERRL, anicteric sclera Ears, Nose, Mouth, Throat: moist mucous membranes, hearing normal Cardiovascular: regular rate and rhythym, no murmur, rub, or gallop Respiratory: no respiratory distress, no rales or rhonchi Gastrointestinal: normoactive bowel sounds, soft, non-tender abdomen, No guarding, No rebound, No distension Genitourinary: no bladder fullness, britton in urethra Skin: warm, normal color Musculoskeletal: full muscle strength, no muscle tenderness Neurologic: AAOx3, sensation intact bilaterally Psychiatric: interacting appropriately, not anxious Lymph, Heme, Immunologic: no cervical LAD ICD10 Worksheet Patient Problems: Problems Problem Status Onset Cyclic vomiting syndrome Acute Abdominal pain Acute Dehydration Acute Vomiting Acute
[2016-10-16] MEDS: ENOXAPARIN 40 MG/0.4 ML SYR SC SCH (15:31)
[2016-10-16] MEDS: PANTOPRAZOLE SODIUM 40 MG TAB PO SCH (18:05)
[2016-10-16] MEDS: TEMAZEPAM 15 MG CAP PO PRN (21:30)
[2016-10-17] MEDS: PROMETHAZINE HCL 25 MG/ML INJ IVP PRN ×3 (03:32→18:36)
[2016-10-17] MEDS: HYOSCYAMINE SULFATE 0.125 MG TAB SL PRN ×2 (03:32→23:38)
[2016-10-17] MEDS: LORazepam 2 MG/ML INJ IVP PRN ×4 (03:32→19:26)
[2016-10-17] MEDS: ONDANSETRON 4 MG/2 ML VIAL IVP PRN ×3 (07:06→23:37)
[2016-10-17] MEDS: PANTOPRAZOLE SODIUM 40 MG TAB PO SCH (09:34)
[2016-10-17] MEDS: ENOXAPARIN 40 MG/0.4 ML SYR SC SCH (09:34)
[2016-10-17] MEDS: D5W 1/2 NS W/ 20 KCl/L 1,000 ML IV SCH ×2 (09:42→23:43)
[2016-10-17] MEDS: ONDANSETRON DISINTEGRATING 4 MG TAB PO PRN ×2 (13:01→18:11)
[2016-10-17] MEDS ORDERED: NICOTINE POLACRILEX 2 MG GUM B PRN (14:18)
--- NOTE | 2016-10-17 14:19 | HOSPPROG ---
Hospitalist Progress Note Assessment/Plan: 26 yo M w gastroparesis here w n/vom gastroparesis: continue symptomatic management drug allergies noted ?cannabis hyperemesis: feel less likely follow acidosis: resolved proph: lmwh dispo :inpt Subjective: still nauseated and w no appetite Objective: Vital Signs Temp Pulse Resp BP Pulse Ox 37.1 C 54 L 20 114/68 98 10/17/16 08:00 10/17/16 08:00 10/17/16 08:00 10/17/16 14:03 10/17/16 08:00 10/16/16 10/17/16 10/18/16 05:59 05:59 05:59 Intake Total 1450 Output Total 150 Balance 1300 - Physical Exam Constitutional: no apparent distress, appears nourished Eyes: PERRL, anicteric sclera Ears, Nose, Mouth, Throat: moist mucous membranes, hearing normal Cardiovascular: regular rate and rhythym, no murmur, rub, or gallop Respiratory: no respiratory distress, no rales or rhonchi Gastrointestinal: normoactive bowel sounds, soft, non-tender abdomen, No guarding, No rebound, No distension Genitourinary: no bladder fullness, No britton in urethra Skin: warm, normal color Musculoskeletal: full muscle strength, no muscle tenderness Neurologic: AAOx3 ICD10 Worksheet Patient Problems: Problems Problem Status Onset Cyclic vomiting syndrome Acute Abdominal pain Acute Dehydration Acute Vomiting Acute
[2016-10-17] MEDS ORDERED: HYDROmorphONE/DILAUDID 1 MG/ML SYR ONE (19:36)
[2016-10-17] MEDS ORDERED: HYDROmorphONE/DILAUDID 1 MG/ML SYR IVP ONE (19:45)
[2016-10-17] MEDS: TEMAZEPAM 15 MG CAP PO PRN (21:01)
[2016-10-17] MEDS: HYDROmorphONE/DILAUDID 1 MG/ML SYR IVP PRN (23:37)
[2016-10-18] MEDS: ONDANSETRON DISINTEGRATING 4 MG TAB PO PRN (03:35)
[2016-10-18] MEDS: ONDANSETRON 4 MG/2 ML VIAL IVP PRN ×4 (03:59→19:46)
[2016-10-18] MEDS: PROMETHAZINE HCL 25 MG/ML INJ IVP PRN ×3 (05:35→15:04)
[2016-10-18] MEDS: PANTOPRAZOLE SODIUM 40 MG TAB PO SCH (08:06)
[2016-10-18] MEDS: ENOXAPARIN 40 MG/0.4 ML SYR SC SCH (08:06)
[2016-10-18] MEDS: HYDROmorphONE/DILAUDID 1 MG/ML SYR IVP PRN ×2 (09:48→15:03)
[2016-10-18] MEDS ORDERED: NS 1,000 ML IV ONE (10:20)
[2016-10-18] MEDS ORDERED: SUMAtriptan 6 MG/0.5 ML VIAL SC ONE (10:20)
--- NOTE | 2016-10-18 10:28 | HOSPPROG ---
Hospitalist Progress Note Assessment/Plan: 26 yo M w gastroparesis?/cyclic vomiting syndrome here w n/vom ?gastroparesis: continue symptomatic management drug allergies noted ? Cyclic vomiting syndrome * Does have photosensitivity and some headache * Will try treatment for migraine with Imitrex * Continue IV fluids acidosis: resolved proph: lmwh dispo :inpt Subjective: Still vomiting. Feels dehydrated. Has a little bit of headache. Does have photosensitivity Objective: Vital Signs Temp Pulse Resp BP Pulse Ox 36.6 C 58 L 20 154/97 H 96 10/18/16 08:00 10/18/16 08:00 10/18/16 08:00 10/18/16 08:00 10/18/16 08:00 10/17/16 10/18/16 10/19/16 05:59 05:59 05:59 Intake Total 1450 1346 Output Total 150 1650 150 Balance 1300 -304 -150 - Physical Exam Constitutional: no apparent distress, appears nourished, not in pain Eyes: anicteric sclera, EOMI Ears, Nose, Mouth, Throat: moist mucous membranes, hearing normal Cardiovascular: regular rate and rhythym Gastrointestinal: normoactive bowel sounds, other (Mild epigastric tenderness) Skin: warm Neurologic: AAOx3 Psychiatric: interacting appropriately, not anxious, not encephalopathic, thought process linear ICD10 Worksheet Patient Problems: Problems Problem Status Onset Cyclic vomiting syndrome Acute Abdominal pain Acute Dehydration Acute Vomiting Acute
[2016-10-18] MEDS: LORazepam 2 MG/ML INJ IVP PRN ×3 (10:48→19:46)
[2016-10-18 11:25] LABS: ALANINE AMINOTRANSFERASE 45 IU/L (21-72); ALBUMIN 4.1 g/dL (3.5-5.0); ALKALINE PHOSPHATASE 58 IU/L (38-126); ANION GAP 13 mEq/L (8-16); ASPARTATE AMINOTRANSFERASE 29 IU/L (17-59); BILIRUBIN,TOTAL 3.8 mg/dL (0.1-1.4); BILIRUBIN-CONJUGATED 0.9 mg/dL (0.0-0.5); BILIRUBIN-UNCONJUGATED 2.9 mg/dL (0.0-1.1); CALCIUM 9.8 mg/dL (8.5-10.4); CARBON DIOXIDE 25 mEq/l (22-31); CHLORIDE 102 mEq/L (97-110); CREATININE 0.9 mg/dL (0.7-1.3); GLOMERULAR FILTRATION RATE > 60; GLUCOSE 89 mg/dL (70-100); POTASSIUM 3.7 mEq/L (3.5-5.2); SODIUM 140 mEq/L (134-144); TOTAL PROTEIN 6.8 g/dL (6.3-8.2)
[2016-10-18] MEDS: D5W 1/2 NS W/ 20 KCl/L 1,000 ML IV SCH ×2 (12:46→21:11)
[2016-10-19] MEDS: D5W 1/2 NS W/ 20 KCl/L 1,000 ML IV SCH ×3 (03:16→19:54)
[2016-10-19] MEDS: ONDANSETRON 4 MG/2 ML VIAL IVP PRN ×5 (03:16→19:44)
[2016-10-19] MEDS: PROMETHAZINE HCL 25 MG/ML INJ IVP PRN ×4 (06:44→22:36)
[2016-10-19] MEDS: HYDROmorphONE/DILAUDID 1 MG/ML SYR IVP PRN ×4 (06:45→21:18)
[2016-10-19] MEDS: LORazepam 2 MG/ML INJ IVP PRN ×2 (07:06→13:18)
--- NOTE | 2016-10-19 10:48 | HOSPPROG ---
Hospitalist Progress Note Assessment/Plan: 26 yo M w gastroparesis?/cyclic vomiting syndrome here w n/vom ?gastroparesis: continue symptomatic management drug allergies noted Will try higher dose Phenergan and Zofran Considering acupuncture Can try dried jeff outpatient or if he is able to take p.o. here Ultrasound does not show obstructive bile ducts acidosis: resolved proph: lmwh dispo :inpt Subjective: Continue nausea vomiting. Also with epigastric abdominal pain Objective: Vital Signs Temp Pulse Resp BP Pulse Ox 36.8 C 57 L 13 131/83 H 93 10/19/16 03:16 10/19/16 03:16 10/19/16 03:16 10/19/16 03:16 10/19/16 03:16 Laboratory Results 10/18/16 10:43 10/18/16 10/19/16 10/20/16 05:59 05:59 05:59 Intake Total 1346 3306 1502 Output Total 1650 525 925 Balance -304 2781 577 - Physical Exam Constitutional: uncomfortable Ears, Nose, Mouth, Throat: dry mucous membranes Cardiovascular: regular rate and rhythym, no murmur, rub, or gallop Respiratory: no respiratory distress Gastrointestinal: normoactive bowel sounds, tenderness (Epigastric) Skin: warm Neurologic: AAOx3 Psychiatric: interacting appropriately, not anxious, not encephalopathic, thought process linear ICD10 Worksheet Patient Problems: Problems Problem Status Onset Cyclic vomiting syndrome Acute Abdominal pain Acute Dehydration Acute Vomiting Acute
[2016-10-19] MEDS: PANTOPRAZOLE SODIUM 40 MG TAB PO SCH (10:53)
[2016-10-19] MEDS: ENOXAPARIN 40 MG/0.4 ML SYR SC SCH (10:59)
[2016-10-20] MEDS: D5W 1/2 NS W/ 20 KCl/L 1,000 ML IV SCH (02:55)
[2016-10-20] MEDS: ONDANSETRON 4 MG/2 ML VIAL IVP PRN ×2 (03:33→09:33)
[2016-10-20] MEDS: HYDROmorphONE/DILAUDID 1 MG/ML SYR IVP PRN ×3 (03:33→18:15)
[2016-10-20] MEDS: PROMETHAZINE HCL 25 MG/ML INJ IVP PRN (06:14)
[2016-10-20] MEDS: LORazepam 2 MG/ML INJ IVP PRN ×2 (06:14→22:56)
[2016-10-20 07:37] LABS: % IMMATURE GRANULYOCYTES 0.6 % (0.0-1.1); ABSOLUTE IMMATURE GRANULOCYTES 0.05 10^3/uL (0.00-0.10); ADD DIFF? NO; ADD MORPH? NO; ADD SCAN? NO; ATYPICAL LYMPHOCYTE FLAG 0 (0-99); FRAGMENT RBC FLAG 0 (0-99); HEMOGLOBIN 16.2 g/dL (13.7-17.5); LEFT SHIFT FLG 0 (0-99); LIPEMIA HEMOLYSIS FLAG 90 (0-99); MEAN CELL HEMOGLOBIN 32.1 pg (27.9-34.1); MEAN CELL HEMOGLOBIN CONCENTR. 35.2 g/dL (32.4-36.7); MEAN CELL VOLUME 91.1 fL (81.5-99.8); MEAN PLATELET VOLUME 9.4 fL (8.7-11.7); PLATELET CLUMPS FLAG 0 (0-99); PLATELET COUNT 241 10^3/uL (150-400); RED BLOOD CELL COUNT 5.05 10^6/uL (4.40-6.38); RED CELL DISTRIBUTION WIDTH 12.2 % (11.5-15.2)
[2016-10-20 07:56] LABS: ANION GAP 10 mEq/L (8-16); CALCIUM 9.6 mg/dL (8.5-10.4); CARBON DIOXIDE 24 mEq/l (22-31); CHLORIDE 105 mEq/L (97-110); CREATININE 0.9 mg/dL (0.7-1.3); GLOMERULAR FILTRATION RATE > 60; GLUCOSE 90 mg/dL (70-100); POTASSIUM 3.6 mEq/L (3.5-5.2); SODIUM 139 mEq/L (134-144)
[2016-10-20] MEDS ORDERED: PROMETHAZINE HCL 25 MG TAB PO PRN (10:42)
[2016-10-20] MEDS: PANTOPRAZOLE SODIUM 40 MG TAB PO SCH (10:42)
[2016-10-20] MEDS: ENOXAPARIN 40 MG/0.4 ML SYR SC SCH (10:42)
--- NOTE | 2016-10-20 10:42 | HOSPPROG ---
Hospitalist Progress Note Assessment/Plan: 26 yo M w gastroparesis?/cyclic vomiting syndrome here w n/vom ?gastroparesis: continue symptomatic management Getting better with higher dose but again drug allergies noted Considering acupuncture Can try dried jeff outpatient or if he is able to take p.o. here Ultrasound does not show obstructive bile ducts acidosis: resolved proph: lmwh dispo :inpt Subjective: Nausea vomiting and abdominal pain are better today Objective: Vital Signs Temp Pulse Resp BP Pulse Ox 36.8 C 68 18 125/73 H 95 10/20/16 08:00 10/20/16 08:00 10/20/16 08:00 10/20/16 08:00 10/20/16 08:00 Laboratory Results 10/20/16 07:24 10/20/16 07:24 10/19/16 10/20/16 10/21/16 05:59 05:59 05:59 Intake Total 3306 3112 Output Total 525 3075 Balance 2781 37 - Physical Exam Constitutional: no apparent distress, appears nourished, not in pain Eyes: anicteric sclera, EOMI Ears, Nose, Mouth, Throat: moist mucous membranes Respiratory: no respiratory distress Skin: warm Neurologic: AAOx3 Psychiatric: interacting appropriately, not anxious, not encephalopathic, thought process linear ICD10 Worksheet Patient Problems: Problems Problem Status Onset Cyclic vomiting syndrome Acute Abdominal pain Acute Dehydration Acute Vomiting Acute
[2016-10-20] MEDS: ONDANSETRON DISINTEGRATING 4 MG TAB PO PRN (17:35)
[2016-10-20] MEDS: HYOSCYAMINE SULFATE 0.125 MG TAB SL PRN (17:35)
[2016-10-20] MEDS: TEMAZEPAM 15 MG CAP PO PRN (22:56)
[2016-10-21] MEDS: ONDANSETRON 4 MG/2 ML VIAL IVP PRN ×3 (05:26→16:13)
[2016-10-21] MEDS: LORazepam 2 MG/ML INJ IVP PRN ×4 (05:31→18:37)
[2016-10-21] MEDS: PROMETHAZINE HCL 25 MG/ML INJ IVP PRN ×3 (06:19→18:33)
[2016-10-21] MEDS: HYDROmorphONE/DILAUDID 1 MG/ML SYR IVP PRN (07:25)
[2016-10-21] MEDS: ENOXAPARIN 40 MG/0.4 ML SYR SC SCH (09:32)
[2016-10-21] MEDS: PANTOPRAZOLE SODIUM 40 MG TAB PO SCH (09:32)
[2016-10-21] MEDS: D5W 1/2 NS W/ 20 KCl/L 1,000 ML IV SCH ×2 (12:31→23:07)
[2016-10-21] MEDS ORDERED: ZOLPIDEM TARTRATE 5 MG TAB PO PRN (13:30)
--- NOTE | 2016-10-21 13:39 | HOSPPROG ---
Hospitalist Progress Note Assessment/Plan: 26 yo M w gastroparesis?/cyclic vomiting syndrome here w n/vom ?gastroparesis: continue symptomatic management Gets better than worse drug allergies noted Did get acupuncture which did help temporarily though Ultrasound does not show obstructive bile ducts Discussed with Boyd Schulte - there seems to be a large anxiety component Will try to get to sleep better Try erythromycin IV acidosis: resolved proph: lmwh dispo :inpt Subjective: Continued nausea vomiting Objective: Vital Signs Temp Pulse Resp BP Pulse Ox 36.9 C 78 25 H 163/99 H 93 10/21/16 04:36 10/21/16 11:38 10/21/16 07:07 10/21/16 11:38 10/21/16 07:07 Laboratory Results 10/20/16 07:24 10/20/16 07:24 10/20/16 10/21/16 10/22/16 05:59 05:59 05:59 Intake Total 3112 940 75 Output Total 3075 375 1100 Balance 37 565 -1026 Discussed with Elaine Schulte ICD10 Worksheet Patient Problems: Problems Problem Status Onset Cyclic vomiting syndrome Acute Abdominal pain Acute Dehydration Acute Vomiting Acute
[2016-10-21] MEDS: NS IV SCH ×2 (16:06→23:07)
[2016-10-21] MEDS: ERYTHROMYCIN LACTOBIONATE IV SCH ×2 (16:06→23:07)
[2016-10-21] MEDS ORDERED: MELATONIN 3 MG TAB PO SCH (21:00)
[2016-10-22] MEDS: ONDANSETRON DISINTEGRATING 4 MG TAB PO PRN (01:06)
[2016-10-22] MEDS: PROMETHAZINE HCL 25 MG/ML INJ IVP PRN ×2 (01:27→07:30)
[2016-10-22] MEDS ORDERED: HYDROmorphONE/DILAUDID 1 MG/ML SYR ONE (01:33)
[2016-10-22] MEDS: HYDROmorphONE/DILAUDID 1 MG/ML SYR IVP PRN (01:35)
[2016-10-22] MEDS: LORazepam 2 MG/ML INJ IVP PRN ×2 (01:35→07:33)
[2016-10-22] MEDS: NS IV SCH (07:31)
[2016-10-22] MEDS: ERYTHROMYCIN LACTOBIONATE IV SCH (07:31)
[2016-10-22] MEDS: D5W 1/2 NS W/ 20 KCl/L 1,000 ML IV SCH (07:34)
[2016-10-22 08:11] VITALS: BP 140/74; PULSE 63; RESP 18; TEMP 98.7; O2SAT 94
[2016-10-22] MEDS: ONDANSETRON 4 MG/2 ML VIAL IVP PRN (10:37)
[2016-10-22] MEDS: ENOXAPARIN 40 MG/0.4 ML SYR SC SCH (10:41)
[2016-10-22] MEDS: PANTOPRAZOLE SODIUM 40 MG TAB PO SCH (10:41)
--- NOTE | 2016-10-22 13:47 | SOAPPROG ---
SOAP Progress Note Assessment/Plan: Assessment: Gastroparesis sx of N/V. Plan: 10/22/16 13:43 First acupuncture treatment - tx N/V Objective: Vital Signs Temp Pulse Resp BP Pulse Ox 37.1 C 63 18 140/74 H 94 10/22/16 08:00 10/22/16 08:00 10/22/16 08:00 10/22/16 08:00 10/22/16 08:00 Laboratory Results 10/20/16 07:24 10/20/16 07:24 10/21/16 10/22/16 10/23/16 05:59 05:59 05:59 Intake Total 940 3900 Output Total 375 1525 Balance 565 8085 - Time Spent With Patient Time Spent With Patient: Treatment: NADA BILAT, SJ5, LI4, SP9, LR3, GB41, ST36, ST34 STOMACH PAIN, P6 X2 , BECKY 12, 13, KD27 [place] retained for 45-60 min Principle: MOVE QI, STOP N/V ICD10 Worksheet Patient Problems: Problems Problem Status Onset Abdominal pain Acute Vomiting Acute Dehydration Acute Cyclic vomiting syndrome Acute
--- NOTE | 2016-10-22 21:03 | GDS ---
[f rep st] DISCHARGE SUMMARY DISCHARGE DIAGNOSES: 1. Idiopathic gastroparesis with intractable nausea, vomiting. 2. Severe anxiety and depression. HISTORY: This is a 26-year-old male with a history of idiopathic gastroparesis that was diagnosed i jamal Larson. At that time, he had multiple endoscopies and CAT scans, as well as gastric emptying studie s. He presented with intractable nausea and vomiting. HOSPITAL COURSE: Patient was admitted for some time. We tried high-dose antiemetics. We also had a behavioral health nurse see the patient, who felt that there was definitely an anxiety component t o this. We have tried anti anxiety medicines as well. Finally, we started acupuncture which seemed to help him a good deal. His vomiting has now improved, and he is requesting to be discharged home . DISPOSITION: Home. DISCHARGE MEDICATIONS: He is to resume his home medicines. FOLLOWUP INSTRUCTIONS: He is to follow up with Gastroenterology. TIME SPENT: Greater than 30 minutes spent with this patient. /[id number]/MODL
== END 2016-10-22 11:50 | disposition home or self-care (01) | DRG 392 ==
LOC: F2W 17:31 → OBSVTOIN 10-16 15:15
PROVIDERS: ADMIT Student in an Organized Health Care Education/Training Program; ATTEND Student in an Organized Health Care Education/Training Program
DX: K31.84 Gastroparesis (principal); F41.8 Other specified anxiety disorders
CPT/HCPCS: 96374; 97165-GO; G0378; J1170; J1200; J1364; J1650; J2060; J2405; J2550; J3030

== ENCOUNTER 2016-10-23 13:38 | Inpatient (IN) | payer MEDICAID ==
[2016-10-23] MEDS ORDERED: PROMETHAZINE HCL 25 MG/ML INJ IVP ONE ×2 (14:07→16:30)
[2016-10-23] MEDS ORDERED: NS 1,000 ML IV ONE ×3 (14:07→15:31)
[2016-10-23] MEDS ORDERED: LORazepam 2 MG/ML INJ IVP ONE ×2 (14:11→18:34)
--- NOTE | 2016-10-23 14:17 | EDPHY ---
H & P Smoking Status: Heavy smoker Time Seen by Provider: 10/23/16 13:48 HPI/ROS: HPI: Wilmer Dixon is a 26 yrs, male who presents with Chief Complaint: nausea and vomiting Location: epigastric Quality: sharp burning pain Duration: started yesterday after discharge Signs and Symptoms: no fever, no chills, + epigastric pain, + BM today, + anxiety Timing: acute on chronic Severity: 02/04 Context: history of anxiety, gastroparesis, cyclical vomiting with multiple EGD. hx gastric ulcer in past. recent admission for same, given IV anti-emetics , IVF, erythromycin. RUQ 10/18/16 reviewed and no CBD dilatation. s/p cholecystectomy. able to take pills today. reports EGD in near future with GI already scheduled. Modifying Factors: Zofran and Promethazine no relief REVIEW OF SYSTEMS: Constitutional: No fever Eyes: No blurred vision Respiratory: No shortness of breath, no cough Cardiovascular: No chest pain Gastrointestinal: + nausea, + vomiting no diarrhea Genitourinary: No dysuria Extremities: No myalgias Neurologic: No weakness, no numbness Skin: No rashes Hematologic: No bruising, no bleeding ([place]) Past Medical/Surgical History: anxiety, gastroparesis, cyclical vomiting syndrome, cholecystectomy ([place]) Social History: lives with girlfriend. from [place] originally. ([place]) Physical Exam: CONSTITUTIONAL: anxious moderate distress white male who wavers between crying and laughing, awake and alert, no obvious distress HEENT: Atraumatic and normocephalic, PERRL, EOMI. Tympanic membranes clear. . Oropharynx clear, no exudate and moist pink mucosa. Airway patent. No lymphadenopathy. No meningismus. Cardiovascular: Normal S1/S2, tachycardia, regular rhythm, without murmur rub or gallop. PULMONARY/CHEST: Symmetrical and nontender. Clear to auscultation bilaterally Good air movement. No accessory muscle usage. ABDOMEN: Soft, nondistended, non-focal generalized tenderness, no rebound, no guarding, no peritoneal signs, no masses or organomegaly. No CVAT. EXTREMITIES: 2/2 pulses, no deformities, no clubbing, no cyanosis or edema. NEUROLOGICAL: no focal neuro deficits. GCS 15. SKIN: Warm and dry, no erythema. no rash. Good capillary refill. REVIEW OF SYSTEMS: Constitutional: No fever Eyes: No blurred vision Respiratory: No shortness of breath, no cough Cardiovascular: No chest pain Gastrointestinal: + nausea, + vomiting no diarrhea Genitourinary: No dysuria Extremities: No myalgias Neurologic: No weakness, no numbness Skin: No rashes Hematologic: No bruising, no bleeding ([place]) Constitutional: Initial Vital Signs Temperature (C) 37.1 C 10/23/16 13:40 Heart Rate 130 H 10/23/16 13:40 Respiratory Rate 14 10/23/16 13:40 Blood Pressure 135/104 H 10/23/16 13:40 O2 Sat (%) 97 10/23/16 13:40 O2 Delivery Mode Room Air Allergies/Adverse Reactions: acetaminophen [From Vicodin] Allergy (Verified 10/15/16 13:08) haloperidol [From Haldol] Allergy (Verified 10/17/16 19:44) hydrocodone [From Vicodin] Allergy (Verified 10/15/16 13:08) metoclopramide [From Reglan] Allergy (Verified 10/17/16 19:44) Home Medications: Medication Instructions Recorded Albuterol [Proventil Inhaler HFA 1 - 2 puffs IH DAILY PRN 08/05/16 (*)] Omeprazole [Prilosec 20 mg] 20 mg PO DAILY PRN 08/05/16 Promethazine HCl [Phenergan] 25 mg RC Q6 PRN 08/10/16 Ondansetron Odt [Zofran Odt 4 mg 8 mg PO Q8 PRN #60 tab 08/11/16 (*)] HYOSCYAMINE SULFATE [LEVSIN-SL] 0.125 mg SL Q4-6PRN PRN 08/28/16 Ondansetron [Zofran Odt] 8 mg PO QID PRN #60 tab.rapdis 10/22/16 Promethazine HCl [Phenergan 25mg 25 mg PO Q6HRS PRN #60 tab 10/22/16 (*)] Promethazine HCl [Phenergan Rectal] 25 mg NE Q6 PRN #10 suppr 10/22/16 Medical Decision Making ED Course/Re-evaluation: labs, UA, IVF, IV medications known gastroparesis and cyclic vomiting syndrome with discharge < 24 hours afebrile. no systemic signs Given 2 liters NS, IV Ativan 1 mg, IV Promethazine afebrile. leukocytosis and LFTs noted; likely reactive as similar presentation reassessed patient 2:40 PM: now writhing in bed; no active emesis. Zyprexa 5 mg given End of Shift: The care of the patient was turned over to at [address] Traore Patient history , orders, assessment, plan discussed. [ ] I authorize my typed signature that I authenticated this report. ([place]) 1500 care assumed by me from FELIX [place]. 26-year-old with a history of cyclic vomiting syndrome, discharge from the hospital yesterday after 5 days admission. Patient presenting with recurrence of abdominal pain nausea vomiting. He has received Ativan, Phenergan and Zyprexa here. He is continuing to complain of nausea vomiting. I will give a another L of IV fluids and 50 mg of diphenhydramine. If he has not had any relief in his symptoms will likely require readmission to the hospital. Will assess his progress. Patient has significant abnormalities of labs which are not acute. 1715 patient is still complaining of nausea and pain after Ativan, Zyprexa, diphenhydramine, and Phenergan dose x2. Patient also received 3 L of IV fluid with no significant improvement in his symptoms. I have discussed with Dr. Irineo Finnegan, hospitalist. He will admit to his service for further care. ( Dario Traore) - Data Points Laboratory Results: Laboratory Results 10/23/16 14:00 10/23/16 14:00 10/23/16 10/23/16 14:00 14:00 WBC 19.17 10^3/uL H 10^3/uL (3.80-9.50) RBC 5.34 10^6/uL 10^6/uL (4.40-6.38) Hgb 17.3 g/dL g/dL (13.7-17.5) Hct 48.4 % % (40.0-51.0) MCV 90.6 fL fL (81.5-99.8) MCH 32.4 pg pg (27.9-34.1) MCHC 35.7 g/dL g/dL (32.4-36.7) RDW 12.1 % % (11.5-15.2) Plt Count 324 10^3/uL 10^3/uL (150-400) MPV 9.7 fL fL (8.7-11.7) Neut % (Auto) 85.4 % H % (39.3-74.2) Lymph % (Auto) 8.0 % L % (15.0-45.0) [place] % (Auto) 5.4 % % (4.5-13.0) Eos % (Auto) 0.1 % L % (0.6-7.6) Baso % (Auto) 0.5 % % (0.3-1.7) Nucleat RBC Rel Count 0.0 % % (0.0-0.2) Absolute Neuts (auto) 16.39 10^3/uL H 10^3/uL (1.70-6.50) Absolute Lymphs (auto) 1.53 10^3/uL 10^3/uL (1.00-3.00) Absolute Monos (auto) 1.03 10^3/uL H 10^3/uL (0.30-0.80) Absolute Eos (auto) 0.01 10^3/uL L 10^3/uL (0.03-0.40) Absolute Basos (auto) 0.10 10^3/uL 10^3/uL (0.02-0.10) Absolute Nucleated RBC 0.00 10^3/uL 10^3/uL (0-0.01) Immature Gran % 0.6 % % (0.0-1.1) Immature Gran # 0.11 10^3/uL H 10^3/uL (0.00-0.10) Sodium 141 mEq/L mEq/L (134-144) Potassium 3.5 mEq/L mEq/L (3.5-5.2) Chloride 100 mEq/L mEq/L (97-110) Carbon Dioxide 20 mEq/l L mEq/l (22-31) Anion Gap 21 mEq/L H mEq/L (8-16) BUN 13 mg/dL mg/dL (7-23) Creatinine 1.1 mg/dL mg/dL (0.7-1.3) Estimated GFR > 60 Glucose 106 mg/dL H mg/dL (70-100) Calcium 10.7 mg/dL H mg/dL (8.5-10.4) Phosphorus 2.0 mg/dL L mg/dL (2.5-4.5) Total Bilirubin 4.4 mg/dL H mg/dL (0.1-1.4) Conjugated Bilirubin 1.1 mg/dL H mg/dL (0.0-0.5) Unconjugated Bilirubin 3.3 mg/dL H mg/dL (0.0-1.1) AST 41 IU/L IU/L (17-59) ALT 80 IU/L H IU/L (21-72) Alkaline Phosphatase 74 IU/L IU/L (38-126) Total Protein 8.2 g/dL g/dL (6.3-8.2) Albumin 5.0 g/dL g/dL (3.5-5.0) Lipase 122.0 IU/L IU/L (23-300) Medications Given: Discontinued Medications Diphenhydramine HCl (Benadryl Injection) 50 mg IVP EDNOW ONE Stop: 10/23/16 15:32 Last Admin: 10/23/16 15:35 Dose: 50 mg Haloperidol Lactate (Haldol Injection) 5 mg IVP EDNOW ONE Stop: 10/23/16 14:40 Last Admin: 10/23/16 14:50 Dose: Not Given Sodium Chloride (Ns) 1,000 mls @ 0 mls/hr IV ONCE ONE; Wide Open PRN Reason: Protocol Stop: 10/23/16 14:08 Last Admin: 10/23/16 14:29 Dose: 1,000 mls Sodium Chloride (Ns) 1,000 mls @ 0 mls/hr IV ONCE ONE; Wide Open PRN Reason: Protocol Stop: 10/23/16 14:08 Last Admin: 10/23/16 14:30 Dose: 1,000 mls Sodium Chloride (Ns) 1,000 mls @ 0 mls/hr IV ONCE ONE PRN Reason: Wide Open Stop: 10/23/16 15:32 Last Admin: 10/23/16 15:35 Dose: 1,000 mls Lorazepam (Ativan Injection) 1 mg IVP EDNOW ONE Stop: 10/23/16 14:12 Last Admin: 10/23/16 14:30 Dose: 1 mg Olanzapine (Olanzapine) 5 mg PO ONCE ONE Stop: 10/23/16 14:51 Last Admin: 10/23/16 14:56 Dose: 5 mg Promethazine HCl (Phenergan) 12.5 mg IVP EDNOW ONE Stop: 10/23/16 14:08 Last Admin: 10/23/16 14:30 Dose: 12.5 mg Departure - Departure Disposition: [facility] Inpatient Acute Clinical Impression: Vomiting, Cyclic vomiting syndrome Condition: Fair Referrals: NONE *PRIMARY CARE P,. [Primary Care Provider] - As per Instructions
[2016-10-23 14:22] LABS: % IMMATURE GRANULYOCYTES 0.6 % (0.0-1.1); ABSOLUTE IMMATURE GRANULOCYTES 0.11 10^3/uL (0.00-0.10); ADD DIFF? NO; ADD MORPH? NO; ADD SCAN? NO; ATYPICAL LYMPHOCYTE FLAG 0 (0-99); FRAGMENT RBC FLAG 0 (0-99); HEMATOCRIT 48.4 % (40.0-51.0); HEMOGLOBIN 17.3 g/dL (13.7-17.5); LEFT SHIFT FLG 0 (0-99); LIPEMIA HEMOLYSIS FLAG 90 (0-99); MEAN CELL HEMOGLOBIN 32.4 pg (27.9-34.1); MEAN CELL HEMOGLOBIN CONCENTR. 35.7 g/dL (32.4-36.7); MEAN CELL VOLUME 90.6 fL (81.5-99.8); MEAN PLATELET VOLUME 9.7 fL (8.7-11.7); PLATELET CLUMPS FLAG 0 (0-99); PLATELET COUNT 324 10^3/uL (150-400); RED BLOOD CELL COUNT 5.34 10^6/uL (4.40-6.38); RED CELL DISTRIBUTION WIDTH 12.1 % (11.5-15.2)
[2016-10-23 14:29] LABS: ALANINE AMINOTRANSFERASE 80 IU/L (21-72); ALKALINE PHOSPHATASE 74 IU/L (38-126); ANION GAP 21 mEq/L (8-16); ASPARTATE AMINOTRANSFERASE 41 IU/L (17-59); BILIRUBIN,TOTAL 4.4 mg/dL (0.1-1.4); BILIRUBIN-CONJUGATED 1.1 mg/dL (0.0-0.5); BILIRUBIN-UNCONJUGATED 3.3 mg/dL (0.0-1.1); CALCIUM 10.7 mg/dL (8.5-10.4); CARBON DIOXIDE 20 mEq/l (22-31); CHLORIDE 100 mEq/L (97-110); CREATININE 1.1 mg/dL (0.7-1.3); GLOMERULAR FILTRATION RATE > 60; GLUCOSE 106 mg/dL (70-100); POTASSIUM 3.5 mEq/L (3.5-5.2); SODIUM 141 mEq/L (134-144); TOTAL PROTEIN 8.2 g/dL (6.3-8.2)
[2016-10-23] MEDS ORDERED: HALOPERIDOL LACT 5 MG/ML INJ IVP ONE (14:39)
[2016-10-23] MEDS ORDERED: OLANZapine 5 MG TAB PO ONE (14:50)
[2016-10-23] MEDS ORDERED: PROMETHAZINE HCL 25 MG/ML INJ ONE (16:35)
[2016-10-23] MEDS ORDERED: PROMETHAZINE HCL 25 MG/ML INJ IVP PRN (18:33)
[2016-10-23] MEDS ORDERED: ACETAMINOPHEN 325 MG TAB PO PRN (18:41)
[2016-10-23] MEDS: ONDANSETRON 4 MG/2 ML VIAL IVP PRN ×2 (18:47→22:45)
[2016-10-23] MEDS ORDERED: PROMETHAZINE HCL 25 MG SUPPR PR PRN (18:50)
[2016-10-23] MEDS ORDERED: HYOSCYAMINE SULFATE 0.125 MG TAB SL PRN (18:50)
[2016-10-23] MEDS ORDERED: ALBUTEROL 60 PUFFS/8 GM MDI IH PRN (18:50)
[2016-10-23] MEDS ORDERED: ALBUTEROL 200 PUFFS/18 GM MDI IH PRN (18:52)
--- NOTE | 2016-10-23 19:31 | GHP ---
[f rep st] HISTORY AND PHYSICAL DATE OF ADMISSION: 10/23/2016 HISTORY OF PRESENT ILLNESS: The patient is a pleasant 26-year-old gentleman with a history of idiop athic gastroparesis who was recently in the hospital from the to the of this month. He wa s discharged yesterday. During that time, he was treated with antiemetics IV and abdominal ultrasou nd showing status post cholecystectomy, normal sized common bile duct and otherwise unremarkable. Vernell guerrero went home last night. He ate ice chips and other clear liquids and had some ongoing vomiting that was intractable so he sought care today. When I see him the patient is writhing in bed in pain. Vernell guerrero has epigastric pain as a part of his symptom complex. He still has his appendix. He is not havin g fever or chills. He has not had diarrhea. He had some blood in his vomit, but no coffee-ground e mesis. REVIEW OF SYSTEMS: A complete 10-point review of systems was conducted and negative except as noted in the history of present illness. PAST MEDICAL HISTORY: 1. Idiopathic gastroparesis. 2. History of cholecystectomy. HOME MEDICATIONS: 1. Omeprazole. 2. Zofran. 3. Hyoscyamine. ALLERGIES: 1. TYLENOL. 2. HYDROCODONE. 3. HALDOL. 4. REGLAN. FAMILY HISTORY: Notable for father had Crohn disease. SOCIAL HISTORY: Does not drink alcohol. Uses marijuana occasionally. It is not clear that he used in the time between leaving and now. PHYSICAL EXAMINATION: VITAL SIGNS: On presentation temperature 37.1, blood pressure 135/104, pulse 130 now 70, breathing 14 times a minute, 97% on room air. GENERAL: Mild distress. Uncomfortable. HEENT: Sclerae anicteric. Oropharynx clear. Mucous membranes are moist. NECK: Supple without lymphadenopathy or JVD. LUNGS: Clear to auscultation anterolaterally. HEART: S1, S2. Not tachycardic. ABDOMEN: Soft. Bowel sounds are hypoactive. There is voluntary guarding with no rebound. LOWER EXTREMITIES: With out edema. Calves nontender. SKIN: Without rash. NEUROLOGIC: Exam is nonfocal. White count 19.7 with a left shift, hematocrit 48, platelets are 324,000. Sodium 141, potassium 3.5 , chloride 100, bicarb 20, BUN 13, creatinine 1.1 which is up from his baseline. Glucose 106, his b ilirubin is 4.4 which is predominantly unconjugated. His AST is 41, ALT slightly elevated at 80, li pase is 122. There is no imaging. I have discussed the case with Dr. Gianluca Traore. ASSESSMENT/PLAN: This is a 26-year-old gentleman with idiopathic gastroparesis here with pain. 1. Gastroparesis and abdominal pain. The patient has nausea, vomiting, and abdominal pain, similar to his previous presentation. He does have a few lab abnormalities including a significant leukocy tosis and elevated bilirubin that is not consistent with biliary obstruction. Notably labs during t he last admission he had an abdominal ultrasound that did not show evidence of biliary obstruction. Today we will manage him conservatively with IV fluids, some IV narcotics and antiemetics. I will h old on further imaging and repeat his lab studies in the morning. If they remain elevated or should he have a fever, etc., then it is reasonable to repeat imaging in the morning. I think a HIDA scan might also be a reasonable plan for him. Notably he does have his gallbladder removed. I do not s uspect appendicitis at this time. Given how the patient feels, I will reevaluate him in about an ho ur or so and see how he is feeling. 2. Leukocytosis, likely reactive. 3. Hematemesis. Will follow his hematocrit in the morning. 4. Prophylaxis. Pharmacologic prophylaxis indicated. 5. Question cannabis hyperemesis syndrome. I do not think that is what this is. I think this is m ore consistent with gastroparesis. DISPOSITION: Inpatient status given the length of time he stayed here last time. /[id number]/MODL
[2016-10-23 20:25] LABS: COLOR YELLOW; LEUKOCYTE ESTERASE,URINE NEGATIVE (NEGATIVE); NITRITE,URINE NEGATIVE (NEGATIVE)
[2016-10-23] MEDS: PROMETHAZINE HCL 25 MG/ML INJ IVP PRN (20:45)
[2016-10-23] MEDS: HYDROmorphONE/DILAUDID 1 MG/ML SYR IVP PRN (20:45)
[2016-10-23] MEDS: NS 1,000 ML IV SCH (20:47)
[2016-10-24] MEDS: HYDROmorphONE/DILAUDID 1 MG/ML SYR IVP PRN ×3 (00:28→09:32)
[2016-10-24] MEDS: PROMETHAZINE HCL 25 MG/ML INJ IVP PRN ×2 (02:36→08:51)
[2016-10-24] MEDS: NS 1,000 ML IV SCH ×2 (02:42→14:48)
[2016-10-24 05:09] LABS: HEMATOCRIT 42.4 % (40.0-51.0); HEMOGLOBIN 14.9 g/dL (13.7-17.5); MEAN CELL HEMOGLOBIN 32.4 pg (27.9-34.1); MEAN CELL HEMOGLOBIN CONCENTR. 35.1 g/dL (32.4-36.7); MEAN CELL VOLUME 92.2 fL (81.5-99.8); RED BLOOD CELL COUNT 4.6 10^6/uL (4.40-6.38); RED CELL DISTRIBUTION WIDTH 12.3 % (11.5-15.2)
[2016-10-24 05:24] LABS: ALANINE AMINOTRANSFERASE 61 IU/L (21-72); ALBUMIN 3.5 g/dL (3.5-5.0); ALKALINE PHOSPHATASE 48 IU/L (38-126); ANION GAP 10 mEq/L (8-16); ASPARTATE AMINOTRANSFERASE 27 IU/L (17-59); BILIRUBIN,TOTAL 3.7 mg/dL (0.1-1.4); CALCIUM 9.2 mg/dL (8.5-10.4); CARBON DIOXIDE 24 mEq/l (22-31); CHLORIDE 106 mEq/L (97-110); CREATININE 0.9 mg/dL (0.7-1.3); GLOMERULAR FILTRATION RATE > 60; GLUCOSE 83 mg/dL (70-100); POTASSIUM 3.8 mEq/L (3.5-5.2); SODIUM 140 mEq/L (134-144); TOTAL PROTEIN 5.9 g/dL (6.3-8.2)
[2016-10-24] MEDS: ONDANSETRON 4 MG/2 ML VIAL IVP PRN ×2 (05:28→09:54)
[2016-10-24 05:33] LABS: BILIRUBIN-CONJUGATED 0.6 mg/dL (0.0-0.5); BILIRUBIN-UNCONJUGATED 3.1 mg/dL (0.0-1.1)
[2016-10-24] MEDS ORDERED: ENOXAPARIN 40 MG/0.4 ML SYR SC SCH (09:00)
[2016-10-24] MEDS ORDERED: SUCRALFATE 1 GM/10 ML UDCUP PO SCH (11:30)
[2016-10-24] MEDS ORDERED: ONDANSETRON DISINTEGRATING 4 MG TAB PO PRN (12:01)
[2016-10-24 13:37] LABS: PHENCYCLIDINE URINE BCH 7 ng/ml (NEGATIVE); PHENCYCLIDINE URINE BCH NEGATIVE (NEGATIVE)
[2016-10-24] MEDS ORDERED: PANTOPRAZOLE SODIUM 40 MG TAB PO SCH (13:45)
[2016-10-24 13:48] LABS: TETRAHYDROCANNABINOL URINE > 800 ng/mL (NEGATIVE)
[2016-10-24 16:00] VITALS: BP 132/66; PULSE 68; RESP 18; TEMP 97.6; O2SAT 95
--- NOTE | 2016-10-24 17:24 | GDS ---
[f rep st] DISCHARGE SUMMARY DISCHARGE DIAGNOSES: 1. Epigastric pain, nausea and vomiting, resolved. 2. Leukocytosis, essentially resolved. 3. Metabolic acidosis, resolved. 4. Gilbert's syndrome. 5. Marijuana abuse with urine drug screen results positive for marijuana greater than 800 ng/mL. HISTORY: For details, please see dictated history and physical dated October 23, 2016. In brief, the patient is a 26-year-old male, who reports a history of idiopathic gastroparesis with a recent week- long hospitalization for nausea and vomiting treated with IV antiemetics. He returned to the hospit al the day after discharge with ongoing symptoms. HOSPITAL COURSE: Patient was admitted to the medical-surgical unit with nausea, vomiting, abdominal pain, similar to his previous episodes. He states he has had gastric emptying studies in the past, some of which have shown delayed gastric emptying and some of which have been normal. He does use marijuana and has a level that is greater than 800 ng/mL. He had an elevated white count of 18,000 on arrival, which was likely a stress reaction in the setting of nausea and vomiting. This has come down to 11 at discharge. Abdominal ultrasound the last admission did not show any evidence of bili ashlee obstruction with a normal size common bile duct. There was some report of hematemesis, though h is hemoglobin remained stable at 14.9 on discharge without further hematemesis. On the day of disch arge, the patient reports his symptoms are much improved. He is able to advance his diet with no wo rsening symptoms. He does report a history of peptic ulcer disease and is discharged on a double-do se of omeprazole along with Carafate. I also encouraged him to consider cessation of marijuana, as this could be cannabis-related hyperemesis syndrome. He is less enthused about this potential diagn osis. He is followed by GI of the [facility], and will have close outpatient followup. DISPOSITION: Patient is discharged home in stable condition. FOLLOWUP: 1. GI of the [facility]. 2. Primary care. DISCHARGE MEDICATIONS: Please see Jimmy Fairly for complete updated outpatient medication list. He raffy l continue all outpatient medications as prescribed, including p.r.n. Zofran, promethazine, and Levs in. New/changed prescriptions include omeprazole 20 mg p.o. b.i.d. #60 no refills, and sucralfate i s added at 100 mg p.o. a.c. h.s. 30-day supply no refills. /[id number]/MODL
== END 2016-10-24 16:36 | disposition home or self-care (01) | DRG 392 ==
LOC: F1N 18:18 → OBSVTOIN 18:41
PROVIDERS: ADMIT Internal Medicine; ATTEND Internal Medicine
DX: K31.84 Gastroparesis (principal); E87.2 Acidosis; E80.4 Gilbert syndrome; F12.10 Cannabis abuse, uncomplicated; Z72.0 Tobacco use
CPT/HCPCS: 80307; G0480; J1170; J1200; J1650; J2060; J2405; J2550

== ENCOUNTER 2016-11-12 09:12 | Day surgery (SDC) | payer MEDICAID ==
[2016-11-12] MEDS ORDERED: LIDOCAINE 1% 2 ML INJ ONE (10:08)
--- NOTE | 2016-11-12 10:29 | PDGENHP ---
History & Physical Chief Complaint: Nausea, vomiting, diarrhea History of Present Illness: Hx of gastroparesis, nausea, vomiting, and diarrhea Relevant Physical Exam: GEN: NAD. Cardiac: RRR. Lungs: CTA B. Abd: Soft, nt, nd
[2016-11-12] MEDS ORDERED: LIDOCAINE 2% 5 ML SDV ONE (10:46)
[2016-11-12] MEDS ORDERED: PROPOFOL/EMULSION 500 MG/50 ML BOTTLE IV ONE (10:46)
[2016-11-12] MEDS ORDERED: PROPOFOL 200 MG/20 ML VIAL ONE (11:09)
--- NOTE | 2016-11-12 11:19 | POSTOPPROG ---
Post Op Note Date of Operation: 11/12/16 Surgeon: Mark Anthony Torres Pre-op Diagnosis: nausea, vomiting, diarrhea Post-op Diagnosis: same Indication: nausea, vomiting, diarrhea Procedure: EGD w/ bx, colon w/ bx Findings: Gastritis, internal hemorrhoids Inf/Abcess present in the surg proc area at time of surgery?: No
[2016-11-12] MEDS ORDERED: LR 500 ML IV PRN (11:27)
[2016-11-12] MEDS ORDERED: NALOXONE HCL 0.4 MG/ML INJ IVP PRN (11:27)
[2016-11-12] MEDS ORDERED: fentaNYL 100 MCG/2 ML INJ IVP PRN (11:27)
--- NOTE | 2016-11-12 11:27 | POSTANESTH ---
Post Anesthetic Evaluation Cardiovascular Status: Normal, Stable Respiratory Status: Normal, Stable Level of Consciousness/Mental Status: Mildly Sleepy, Arousable Pain Control: Adequate, Prn Tx Ordered Nausea/Vomiting Control: Adequate, Prn Tx Ordered Complications Possibly Related to Anesthesia: None Noted
--- NOTE | 2016-11-12 11:27 | PDANEPAE ---
ANE Past Medical History - Cardiovascular History Hx Hypertension: No Hx Arrhythmias: No Hx Chest Pain: No Hx Coronary Artery / Peripheral Vascular Disease: No Hx CHF / Valvular Disease: No Hx Palpitations: No - Pulmonary History Hx COPD: No Hx Asthma/Reactive Airway Disease: Yes Hx Recent Upper Respiratory Infection: No Hx Oxygen in Use at Home: No Hx Sleep Apnea: No Sleep Apnea Screening Result - Last Documented: Negative Pulmonary History Comment: CHILDHOOD ASTHMA - STILL OCCASIONAL SXS - INHALER. Quit smoking in October 2016 - Neurologic History Hx Cerebrovascular Accident: No Hx Seizures: No Hx Dementia: No - Endocrine History Hx Diabetes: No - Renal History Hx Renal Disorders: No - Liver History Hx Hepatic Disorders: Yes Hepatic History Comment: CHOLECYSTECTOMY - Neurological & Psychiatric Hx Hx Neurological and Psychiatric Disorders: No - Cancer History Hx Cancer: No - Congenital Disorder History Hx Congenital Disorders: No - GI History Hx Gastrointestinal Disorders: Yes Gastrointestinal History Comment: GASTROPARESIS IDIOPATHIC. Slow GI motility. - Other Health History Other Health History: ECZEMA - Chronic Pain History Chronic Pain: No - Surgical History Prior Surgeries: CHOLECYSTECTOMY ANE Review of Systems - Exercise capacity METS (RN): 4 METS ANE Patient History - Allergies Allergies/Adverse Reactions: acetaminophen [From Vicodin] Allergy (Verified 10/30/16 12:55) haloperidol [From Haldol] Allergy (Verified 10/30/16 12:55) hydrocodone [From Vicodin] Allergy (Verified 10/30/16 12:55) metoclopramide [From Reglan] Allergy (Verified 10/30/16 12:55) - Home Medications Home Medications: Albuterol [Proventil Inhaler HFA (*)] 1 - 2 puffs IH DAILY PRN 08/05/16 [Last Taken Unknown] HYOSCYAMINE SULFATE [LEVSIN-SL] 0.125 mg SL Q4-6PRN PRN 08/28/16 [Last Taken Unknown] - NPO status NPO Since - Liquids (Date): 11/11/16 NPO Since - Liquids (Time): 23:45 NPO Since - Solids (Date): 11/11/16 NPO Since - Solids (Time): 21:00 - Smoking Hx Smoking Status: Former smoker - Family Anes Hx Family Hx Anesthesia Complications: GRANDMOTHER W/ALLERGIES TO ANESTHESIA MEDS( UNK) ANE Labs/Vital Signs - Vital Signs Blood Pressure: 129/78 Heart Rate: 78 Respiratory Rate: 18 O2 Sat (%): 94 Height: 185.42 cm Weight: 88.451 kg ANE Physical Exam - Airway Mallampati Score: Class 1 Mouth exam: normal dental/mouth exam - Pulmonary Pulmonary: no respiratory distress - Cardiovascular Cardiovascular: regular rate and rhythym - ASA Status ASA Status: II ANE Anesthesia Plan Anesthesia Plan: GA with mask Urgent/Emergent Case: Aleta rice completed preop but documented later for safe timely pt care
[2016-11-12] MEDS ORDERED: ONDANSETRON 4 MG/2 ML VIAL ONE ×2 (11:31→11:45)
[2016-11-12] MEDS: ONDANSETRON 4 MG/2 ML VIAL IVP PRN ×2 (11:37→11:46)
[2016-11-12] MEDS ORDERED: fentaNYL 100 MCG/2 ML INJ ONE (11:45)
[2016-11-12 12:34] VITALS: BP 121/80; RESP 16; TEMP 97.9; O2SAT 98
[2016-11-12 13:32] VITALS: PULSE 54
--- NOTE | 2016-11-12 21:58 | GPN ---
[f rep st] PROCEDURE NOTE DATE OF PROCEDURE: 11/12/2016 PREPROCEDURE DIAGNOSIS: Nausea, vomiting, and diarrhea. POSTPROCEDURE DIAGNOSIS: Gastritis and internal hemorrhoids. PROCEDURES: 1. Esophagogastroduodenoscopy with biopsy. 2. Colonoscopy with biopsy. MEDICATIONS: Monitored anesthesia care. INDICATIONS: Wilmer Dixon is a 26-year-old gentleman with a history of nausea, vomiting, and intermi ttent diarrhea and constipation. He also has a history of gastroparesis. He is here for upper endo scopy and colonoscopy. The risks and benefits of the procedures were discussed with the patient. C onsent obtained. Risks include, but not limited to, bleeding, perforation, risks associated with se dation. The patient is ASA Class II. DESCRIPTION OF PROCEDURE: The endoscope was inserted into the esophagus, into the stomach and secon d portion of the duodenum. The esophagus appeared normal. The GE junction was normal and located a t 45 cm from the incisors. The stomach showed mild diffuse gastritis which was biopsied with cold b iopsy forceps and sent off to Pathology to evaluate for Helicobacter pylori. There was no retained food in the stomach. The duodenum and second portion were normal. Biopsies were taken to evaluate for celiac sprue. Biopsies were taken using the cold biopsy forceps. Next, the patient was repositioned and the adult colonoscope was advanced to the terminal ileum, whi ch appeared normal. Biopsies were taken using cold biopsy forceps of the terminal ilium. The appen diceal orifice, cecum, ileocecal valve, ascending colon, hepatic flexure, transverse colon, splenic flexure, descending colon, sigmoid colon, and rectum appeared normal. Random biopsies were taken th roughout the colon using cold biopsy forceps. Retroflexed views in the rectum showed grade II inter nal hemorrhoids. IMPRESSION: 1. Mild diffuse gastritis. 2. Grade II internal hemorrhoids. RECOMMENDATIONS: 1. Discharge home with escort. 2. Advance diet as tolerated. 3. Continue current medications including acid suppression therapy. 4. Avoid NSAIDs. 5. Follow up in GI Clinic as previously scheduled. 6. Follow up for final biopsy results, available within 10 days. 7. Repeat colonoscopy at age 49 for screening purposes. Thank you for allowing me to participate in the care of your patient. Please do not hesitate to xochitl jake with questions. /[id number]/MODL
== END 2016-11-12 13:30 | disposition home or self-care (01) ==
LOC: FSGY 09:12
PROVIDERS: ATTEND Internal Medicine Gastroenterology
PROC: 0DBE8ZX Excision of Large Intestine, Via Natural or Artificial Opening Endoscopic, Diagnostic (ICD-10-PCS; principal; 2016-11-12 10:30)
PROC: 0DB88ZX Excision of Small Intestine, Via Natural or Artificial Opening Endoscopic, Diagnostic (ICD-10-PCS; principal; 2016-11-12 10:30)
PROC: 0DB68ZX Excision of Stomach, Via Natural or Artificial Opening Endoscopic, Diagnostic (ICD-10-PCS; principal; 2016-11-12 10:30)
PROC: 0DB98ZX Excision of Duodenum, Via Natural or Artificial Opening Endoscopic, Diagnostic (ICD-10-PCS; principal; 2016-11-12 10:30)
DX: R11.2 Nausea with vomiting, unspecified (principal); K64.1 Second degree hemorrhoids; R19.7 Diarrhea, unspecified; K59.00 Constipation, unspecified; Z87.19 Personal history of other diseases of the digestive system
CPT/HCPCS: J2405; J2704; J3010